=== PATIENT | male | born 1960 | race African-American/Black ===

== ENCOUNTER 2020-03-22 05:05 | Inpatient (IN) | payer OTHER, MEDICAID ==
[~2020-03-22] VITALS: Ht 172.7 cm; Wt 59.9 kg
[2020-03-22] MEDS ORDERED: MORPHINE SULFATE 4 MG/ML CPJ (NOT FOR IM USE) IV SCH (07:00)
[2020-03-22] MEDS ORDERED: NITROGLYCERIN 0.4MG TABLET SL SL PRN (08:45)
[2020-03-22] MEDS ORDERED: ONDANSETRON HCL 4MG/2ML INJ IV ONE (09:30)
[2020-03-22 10:11] LABS: MEAN CORPUSCULAR HEMOGLOBIN 28.4 pg (28.0-32.0); MEAN CORPUSCULAR VOLUME 93.9 fL (80.0-94.0); MEAN PLATELET VOLUME 8.3 fl (7.4-10.4); PLATELET 62 x1000/uL (130-400); RED BLOOD CELL COUNT 1.21 mill/uL (4.7-6.1); RED CELL DISTRIBUTION WIDTH 24.7 % (11.6-14.6)
[2020-03-22 10:32] LABS: HEMATOCRIT. 11.4 % (42.0-52.0); HEMOGLOBIN. 3.5 g/dL (14.0-18.0)
[2020-03-22 10:46] LABS: CHLORIDE 106 mEq/L (98-107)
[2020-03-22 10:50] LABS: ETHANOL BLOOD < 10 mg/dL
[2020-03-22 11:58] LABS: PLATELET ESTIMATE MARKEDLY DECREASED
[2020-03-22] MEDS ORDERED: DIATR MEGLU/DIATRIZOATE SOLN 30ML PO SCH (12:00)
[2020-03-22 12:49] LABS: HEMATOCRIT 11.9 % (42.0-52.0); HEMOGLOBIN 3.6 g/dL (14.0-18.0)
[2020-03-22] MEDS ORDERED: METOPROLOL TARTRATE 5MG/5ML VIAL IV NR (13:45)
[2020-03-22] MEDS ORDERED: DIATR MEGLU/DIATRIZOATE SOLN 30ML ONE (16:00)
[2020-03-22 16:33] LABS: HEMOGLOBIN 5.4 g/dL (14.0-18.0)
[2020-03-22 16:34] LABS: HEMATOCRIT 17.3 % (42.0-52.0)
[2020-03-22 16:37] LABS: INR 1.4; PARTIAL THROMBOPLASTIN TIME 25.6 sec (23.4-31.0); PROTHROMBIN TIME 14.6 sec (9.6-11.0)
[2020-03-22] MEDS ORDERED: NITROGLYCERIN 0.4MG TABLET SL SL ONE (16:45)
[2020-03-22] MEDS ORDERED: METOPROLOL TARTRATE 25MG TABLET PO SCH (16:45)
[2020-03-22] MEDS ORDERED: FUROSEMIDE 20MG/2ML VIAL IVP ONE (16:45)
[2020-03-22] MEDS ORDERED: VANCOMYCIN 1 G PREMIX 200 ML IV SCH (17:00)
[2020-03-22] MEDS ORDERED: CEFEPIME HCL 2000MG/VIAL INJ IV ONE (17:00)
[2020-03-22] MEDS ORDERED: CEFEPIME 2,000 MG in DEXT 5% WATER 100 ML IV NR (17:15)
[2020-03-22] MEDS ORDERED: NITROGLYCERIN OINT 1GM/INCH UDPKT TD ONE (17:15)
[2020-03-22 17:19] LABS: VITAMIN B12 SERUM >2000 pg/mL pg/mL (211-911)
[2020-03-22] MEDS ORDERED: EPINEPHRINE 0.1MG/ML (1:10,000) 10ML SYR ONE (18:47)
[2020-03-22] MEDS ORDERED: SUCCINYLCHOLINE CHLORIDE 200MG/10ML IV ONE (18:47)
[2020-03-22] MEDS ORDERED: SODIUM BICARBONATE 8.4% MEQ/ML 50ML VIAL IV ONE (18:47)
[2020-03-22] MEDS ORDERED: NOREPINEPHRINE 4MG/250ML PMX 250 ML IV ONE (19:01)
[2020-03-22] MEDS ORDERED: PROPOFOL 10MG/ML 100ML 100 ML IV ONE (19:17)
[2020-03-22] MEDS ORDERED: ACETAMINOPHEN 650MG SUPP PR PRN (19:30)
[2020-03-22 19:36] LABS: CLARITY URINE CLEAR (CLEAR); COLOR URINE YELLOW (YELLOW); KETONES URINE NEGATIVE (NEGATIVE); LEUKOCYTE ESTERASE URINE NEGATIVE (NEGATIVE); NITRITE URINE NEGATIVE (NEGATIVE); OCCULT BLOOD URINE TRACE (NEGATIVE); PROTEIN URINE 2+ (NEGATIVE); SPECIFIC GRAVITY URINE 1.016 (1.005-1.030); UROBILINOGEN URINE 0.2 E.U./dL (0.2-1.0)
[2020-03-22 20:19] LABS: *AMPHETAMINES SCREEN URINE NEGATIVE (NEGATIVE); *BARBITURATES SCREEN URINE NEGATIVE (NEGATIVE); *BENZODIAZEPINES SCREEN URINE NEGATIVE (NEGATIVE); *COCAINE SCREEN URINE NEGATIVE (NEGATIVE); METHADONE URINE SCREEN NEGATIVE (NEGATIVE)
[2020-03-22 20:20] LABS: CANNABINOID URINE SCREEN PRESUMTIVE POSITIVE (NEGATIVE); OPIATES URINE SCREEN PRESUMTIVE POSITIVE (NEGATIVE); PHENCYCLIDINE URINE SCREEN NEGATIVE (NEGATIVE)
[2020-03-22 20:58] LABS: BG BASE EXCESS -9.3 mmol/L (-2.0-2.0); BG CARBOXYHEMOGLOBIN 0.3 % (0.5-1.5); BG DEOXYHEMOGLOBIN 21.6 % (0.0-5.0); BG FRACTION INSPIRED OXYGEN 100; BG HCO3 ACT 17.9 mmol/L (22.0-26.0); BG OXYGEN SATURATION 78.3 % (92.0-98.5); BG OXYHEMOGLOBIN 78.1 % (94.0-97.0); BG PCO2 47.4 mmHg (35.0-45.0); BG PH 7.195 (7.350-7.450); BG SAMPLE SITE LEFT RADIAL; BG TIDAL VOLUME(mL) 500 mL; BG TOTAL HEMOGLOBIN 5.6 g/dL (12.0-18.0); BG VENT MODE VENT - A/C; BG VENT RATE 16 set
[2020-03-22] MEDS ORDERED: PROPOFOL 10MG/ML 100ML 100 ML IV PRN (21:45)
[2020-03-22] MEDS: SODIUM CHLORIDE 0.9% INJ 3ML FLUSH IVF SCH (22:00)
[2020-03-22 22:27] LABS: CHLORIDE 106 mEq/L (98-107)
[2020-03-22 22:34] LABS: MEAN CORPUSCULAR VOLUME 94.3 fL (80.0-94.0); RED BLOOD CELL COUNT 2.03 mill/uL (4.7-6.1); RED CELL DISTRIBUTION WIDTH 18.8 % (11.6-14.6)
[2020-03-22 22:44] LABS: HEMATOCRIT. 19.2 % (42.0-52.0); HEMOGLOBIN. 6.1 g/dL (14.0-18.0)
[2020-03-22 22:45] LABS: PLATELET 45 x1000/uL (130-400)
[2020-03-22 23:17] LABS: PLATELET ESTIMATE MARKEDLY DECREASED
[2020-03-22] MEDS ORDERED: IOHEXOL-350 100 ML BOTTLE ONE (23:17)
[2020-03-23] VITALS (69 sets, daily range): BP systolic 103–148; BP diastolic 60–91
[2020-03-23 00:59] LABS: HEMATOCRIT 19.4 % (42.0-52.0); HEMOGLOBIN 6.2 g/dL (14.0-18.0)
[2020-03-23 05:02] LABS: MEAN CORPUSCULAR HEMOGLOBIN 30.1 pg (28.0-32.0); MEAN CORPUSCULAR VOLUME 91.5 fL (80.0-94.0); MEAN PLATELET VOLUME 8.8 fl (7.4-10.4); RED BLOOD CELL COUNT 1.97 mill/uL (4.7-6.1); RED CELL DISTRIBUTION WIDTH 18.5 % (11.6-14.6)
[2020-03-23] MEDS: SODIUM CHLORIDE 0.9% INJ 3ML FLUSH IVF SCH ×3 (06:00→22:00)
[2020-03-23 07:20] LABS: HEMOGLOBIN. 5.9 g/dL (14.0-18.0)
[2020-03-23 07:21] LABS: PLATELET 43 x1000/uL (130-400)
[2020-03-23] MEDS: IPRATROPIUM/ALBUTEROL 0.5-3(2.5)MG/3ML NEB HHN SCH ×3 (08:40→20:52)
[2020-03-23] MEDS ORDERED: FUROSEMIDE 40MG/4ML VIAL IVP SCH (09:00)
[2020-03-23 09:26] LABS: BG BASE EXCESS -0.6 mmol/L (-2.0-2.0); BG CARBOXYHEMOGLOBIN 0.3 % (0.5-1.5); BG DEOXYHEMOGLOBIN 17.1 % (0.0-5.0); BG FRACTION INSPIRED OXYGEN 100; BG HCO3 ACT 25.6 mmol/L (22.0-26.0); BG METHEMOGLOBIN 0.3 % (0.0-1.5); BG OXYGEN SATURATION 82.8 % (92.0-98.5); BG OXYHEMOGLOBIN 82.3 % (94.0-97.0); BG PCO2 51.1 mmHg (35.0-45.0); BG PH 7.317 (7.350-7.450); BG PO2 55.3 mmHg (75.0-100.0); BG SAMPLE SITE RIGHT RADIAL; BG TIDAL VOLUME(mL) 500 mL; BG TOTAL HEMOGLOBIN 6.2 g/dL (12.0-18.0); BG VENT MODE VENT - A/C; BG VENT RATE 22 set
[2020-03-23 09:42] LABS: PLATELET ESTIMATE MARKEDLY DECREASED
[2020-03-23] MEDS: PANTOPRAZOLE SODIUM 40 MG/VIAL IV SCH ×2 (10:12→21:23)
[2020-03-23] MEDS ORDERED: PROPOFOL 10MG/ML 100ML 100 ML IV PRN (11:00)
[2020-03-23] MEDS: NITROGLYCERIN OINT 1GM/INCH UDPKT TD SCH ×2 (12:00→17:13)
[2020-03-23 12:45] LABS: HEMATOCRIT 18.4 % (42.0-52.0); HEMOGLOBIN 6.1 g/dL (14.0-18.0)
[2020-03-23] MEDS: CEFEPIME 2,000 MG in DEXT 5% WATER 100 ML IV SCH (12:49)
[2020-03-23] MEDS ORDERED: VANCOMYCIN 1,750 MG in DEXT 5% WATER 250 ML IV NR (13:00)
[2020-03-23] MEDS: METRONIDAZOLE 500 MG PREMIX 100 ML IV SCH ×2 (15:12→21:25)
[2020-03-23] MEDS ORDERED: FUROSEMIDE 40MG/4ML VIAL IVP NR (16:00)
[2020-03-23] MEDS: SUCRALFATE 1 G/10 ML UDC NG SCH (17:17)
[2020-03-23 18:13] LABS: HEMATOCRIT 21.7 % (42.0-52.0); HEMOGLOBIN 7.1 g/dL (14.0-18.0)
[2020-03-23] MEDS: CARVEDILOL 3.125 MG TABLET PO SCH (21:24)
[2020-03-23] MEDS: ONDANSETRON HCL 4MG/2ML INJ IV PRN (21:28)
[2020-03-24] VITALS (41 sets, daily range): BP systolic 83–136; BP diastolic 49–91
[2020-03-24] MEDS: IPRATROPIUM/ALBUTEROL 0.5-3(2.5)MG/3ML NEB HHN SCH ×4 (00:22→20:48)
[2020-03-24 01:03] LABS: HEMATOCRIT 19.8 % (42.0-52.0); HEMOGLOBIN 6.8 g/dL (14.0-18.0)
[2020-03-24] MEDS: SUCRALFATE 1 G/10 ML UDC NG SCH ×4 (06:00→18:00)
[2020-03-24] MEDS: METRONIDAZOLE 500 MG PREMIX 100 ML IV SCH ×3 (06:00→20:16)
[2020-03-24] MEDS: SODIUM CHLORIDE 0.9% INJ 3ML FLUSH IVF SCH (06:00)
[2020-03-24] MEDS: NITROGLYCERIN OINT 1GM/INCH UDPKT TD SCH ×4 (06:00→18:00)
[2020-03-24] MEDS ORDERED: VANCOMYCIN 1 G PREMIX 200 ML IV SCH (07:00)
[2020-03-24 07:08] LABS: HEMATOCRIT 19.1 % (42.0-52.0); HEMOGLOBIN 6.3 g/dL (14.0-18.0)
[2020-03-24 08:07] LABS: BG BASE EXCESS -2.5 mmol/L (-2.0-2.0); BG CARBOXYHEMOGLOBIN 0.2 % (0.5-1.5); BG DEOXYHEMOGLOBIN 0.7 % (0.0-5.0); BG HCO3 ACT 23.6 mmol/L (22.0-26.0); BG METHEMOGLOBIN 0.7 % (0.0-1.5); BG OXYGEN SATURATION 99.3 % (92.0-98.5); BG OXYHEMOGLOBIN 98.4 % (94.0-97.0); BG PCO2 48.1 mmHg (35.0-45.0); BG PH 7.308 (7.350-7.450); BG SAMPLE SITE RIGHT RADIAL; BG TIDAL VOLUME(mL) 500 mL; BG TOTAL HEMOGLOBIN 6.5 g/dL (12.0-18.0); BG VENT MODE VENT - A/C; BG VENT RATE 22 set
[2020-03-24 08:20] LABS: MEAN CORPUSCULAR HEMOGLOBIN 29.9 pg (28.0-32.0); MEAN CORPUSCULAR VOLUME 90.2 fL (80.0-94.0); MEAN PLATELET VOLUME 9.5 fl (7.4-10.4); RED BLOOD CELL COUNT 2.12 mill/uL (4.7-6.1)
[2020-03-24] MEDS: CARVEDILOL 3.125 MG TABLET PO SCH ×2 (09:00→20:15)
[2020-03-24 09:38] LABS: HEMATOCRIT. 19.1 % (42.0-52.0); HEMOGLOBIN. 6.3 g/dL (14.0-18.0); PLATELET 26 x1000/uL (130-400)
[2020-03-24] MEDS ORDERED: PROPOFOL 10MG/ML 100ML 100 ML IV PRN (10:15)
[2020-03-24 10:33] LABS: NUCLEATED RED BLOOD CELLS 2 /100 WBC
[2020-03-24 10:34] LABS: PLATELET ESTIMATE MARKEDLY DECREASED
[2020-03-24 11:06] LABS: PHOSPHORUS 8.8 mg/dL (2.5-4.9)
[2020-03-24] MEDS: PANTOPRAZOLE SODIUM 40 MG/VIAL IV SCH ×2 (13:00→20:14)
[2020-03-24] MEDS ORDERED: SODIUM POLYSTYRENE SULFONATE 15 G/60 ML BOT NG NR (13:00)
[2020-03-24] MEDS: CEFEPIME 2,000 MG in DEXT 5% WATER 100 ML IV SCH ×3 (14:00)
[2020-03-24 15:35] LABS: HEMATOCRIT 23.5 % (42.0-52.0); HEMOGLOBIN 7.8 g/dL (14.0-18.0)
[2020-03-24] MEDS ORDERED: SODIUM POLYSTYRENE SULFONATE 15 G/60 ML BOT PO NR (16:00)
[2020-03-24 20:08] LABS: HEMATOCRIT 23.6 % (42.0-52.0); HEMOGLOBIN 7.9 g/dL (14.0-18.0)
[2020-03-24] MEDS: ONDANSETRON HCL 4MG/2ML INJ IV PRN (20:17)
[2020-03-24] MEDS ORDERED: DEXTROSE 50% WATER 50ML SYRINGE IV PRN (20:45)
[2020-03-25] VITALS (21 sets, daily range): BP systolic 100–158; BP diastolic 41–84
[2020-03-25] MEDS: SUCRALFATE 1 G/10 ML UDC NG SCH ×4 (00:23→18:09)
[2020-03-25] MEDS: CEFEPIME 2,000 MG in DEXT 5% WATER 100 ML IV SCH ×2 (00:24→12:23)
[2020-03-25] MEDS: IPRATROPIUM/ALBUTEROL 0.5-3(2.5)MG/3ML NEB HHN SCH ×4 (01:25→21:23)
[2020-03-25 05:18] LABS: HEMATOCRIT. 21.3 % (42.0-52.0); HEMOGLOBIN. 7.3 g/dL (14.0-18.0); MEAN CORPUSCULAR HEMOGLOBIN 31.3 pg (28.0-32.0); MEAN PLATELET VOLUME 9.8 fl (7.4-10.4); RED BLOOD CELL COUNT 2.34 mill/uL (4.7-6.1); RED CELL DISTRIBUTION WIDTH 16.9 % (11.6-14.6)
[2020-03-25 05:23] LABS: CHLORIDE 114 mEq/L (98-107)
[2020-03-25 05:26] LABS: PLATELET 15 x1000/uL (130-400)
[2020-03-25 05:29] LABS: VANCOMYCIN TROUGH 26.1 ug/mL (5.0-10.0)
[2020-03-25 05:32] LABS: PHOSPHORUS 8.5 mg/dL (2.5-4.9)
[2020-03-25 05:33] LABS: HAPTOGLOBIN 325 mg/dL (30-200)
[2020-03-25] MEDS: METRONIDAZOLE 500 MG PREMIX 100 ML IV SCH ×3 (06:46→21:24)
[2020-03-25] MEDS: NITROGLYCERIN OINT 1GM/INCH UDPKT TD SCH ×4 (06:47→18:10)
[2020-03-25] MEDS: BLOOD SUGAR DIAGNOSTIC STRIP TEST SCH ×4 (06:48→18:47)
[2020-03-25 08:39] LABS: BG BASE EXCESS -2.6 mmol/L (-2.0-2.0); BG CARBOXYHEMOGLOBIN 0.3 % (0.5-1.5); BG DEOXYHEMOGLOBIN 0.3 % (0.0-5.0); BG FRACTION INSPIRED OXYGEN 80; BG HCO3 ACT 21.1 mmol/L (22.0-26.0); BG METHEMOGLOBIN 0.5 % (0.0-1.5); BG OXYGEN SATURATION 99.7 % (92.0-98.5); BG OXYHEMOGLOBIN 98.9 % (94.0-97.0); BG PCO2 31.4 mmHg (35.0-45.0); BG PH 7.445 (7.350-7.450); BG PO2 325.7 mmHg (75.0-100.0); BG SAMPLE SITE RIGHT RADIAL; BG TIDAL VOLUME(mL) 500 mL; BG TOTAL HEMOGLOBIN 6.9 g/dL (12.0-18.0); BG VENT MODE VENT - A/C; BG VENT RATE 24 set
[2020-03-25] MEDS: PANTOPRAZOLE SODIUM 40 MG/VIAL IV SCH ×2 (09:04→21:37)
[2020-03-25] MEDS: CARVEDILOL 3.125 MG TABLET PO SCH ×2 (09:05→21:37)
[2020-03-25] MEDS: SODIUM CHLORIDE 0.45% 1,000 ML IV SCH ×2 (09:45→23:05)
[2020-03-25] MEDS ORDERED: ALBUMIN HUMAN 25GM/100ML (25%) IV SCH (09:45)
[2020-03-25] MEDS: SODIUM CHLORIDE 0.9% INJ 3ML FLUSH IVF SCH ×2 (13:09→21:36)
[2020-03-25 13:25] LABS: NUCLEATED RED BLOOD CELLS 4 /100 WBC; PLATELET ESTIMATE MARKEDLY DECREASED
[2020-03-25] MEDS: ONDANSETRON HCL 4MG/2ML INJ IV PRN (21:37)
[2020-03-26] VITALS (21 sets, daily range): BP systolic 101–159; BP diastolic 49–76
[2020-03-26] MEDS: IPRATROPIUM/ALBUTEROL 0.5-3(2.5)MG/3ML NEB HHN SCH ×3 (02:45→13:07)
[2020-03-26 05:17] LABS: CHLORIDE 115 mEq/L (98-107)
[2020-03-26 05:18] LABS: MEAN CORPUSCULAR HEMOGLOBIN 31.4 pg (28.0-32.0); MEAN CORPUSCULAR VOLUME 90.1 fL (80.0-94.0); RED BLOOD CELL COUNT 1.83 mill/uL (4.7-6.1)
[2020-03-26 05:28] LABS: HEMATOCRIT. 16.5 % (42.0-52.0); HEMOGLOBIN. 5.8 g/dL (14.0-18.0); PLATELET 40 x1000/uL (130-400)
[2020-03-26 05:40] LABS: PHOSPHORUS 8.6 mg/dL (2.5-4.9)
[2020-03-26] MEDS: SODIUM CHLORIDE 0.9% INJ 3ML FLUSH IVF SCH ×3 (06:00→22:00)
[2020-03-26] MEDS: NITROGLYCERIN OINT 1GM/INCH UDPKT TD SCH ×4 (06:04→17:52)
[2020-03-26] MEDS: SUCRALFATE 1 G/10 ML UDC NG SCH ×4 (06:07→17:52)
[2020-03-26] MEDS: METRONIDAZOLE 500 MG PREMIX 100 ML IV SCH (06:07)
[2020-03-26] MEDS: BLOOD SUGAR DIAGNOSTIC STRIP TEST SCH ×4 (06:09→17:54)
[2020-03-26] MEDS: DEXT 5%/0.2% NACL 1,000 ML IV SCH (08:00)
[2020-03-26 08:32] LABS: NUCLEATED RED BLOOD CELLS 2 /100 WBC; PLATELET ESTIMATE MARKEDLY DECREASED
[2020-03-26 08:50] LABS: BG BASE EXCESS -3.6 mmol/L (-2.0-2.0); BG CARBOXYHEMOGLOBIN 0.8 % (0.5-1.5); BG DEOXYHEMOGLOBIN 2.8 % (0.0-5.0); BG FRACTION INSPIRED OXYGEN 50; BG HCO3 ACT 20.5 mmol/L (22.0-26.0); BG METHEMOGLOBIN 0.3 % (0.0-1.5); BG OXYGEN SATURATION 97.2 % (92.0-98.5); BG OXYHEMOGLOBIN 96.1 % (94.0-97.0); BG PCO2 31.4 mmHg (35.0-45.0); BG PH 7.432 (7.350-7.450); BG PO2 94.3 mmHg (75.0-100.0); BG SAMPLE SITE RIGHT RADIAL; BG TIDAL VOLUME(mL) 500 mL; BG TOTAL HEMOGLOBIN 5.3 g/dL (12.0-18.0); BG VENT MODE VENT - A/C; BG VENT RATE 20 set
[2020-03-26] MEDS ORDERED: CALCIUM GLUCONATE 1,000 MG in DEXT 5% WATER 90 ML IV SCH (11:00)
[2020-03-26] MEDS: CARVEDILOL 3.125 MG TABLET PO SCH ×2 (11:04→21:07)
[2020-03-26] MEDS: PANTOPRAZOLE SODIUM 40 MG/VIAL IV SCH ×2 (11:05→21:05)
[2020-03-26] MEDS: CALCIUM CARBONATE 500MG TABLET CHEW NG SCH ×3 (11:05→21:17)
[2020-03-26] MEDS ORDERED: HEPARIN 1000 UNITS/ML 10ML ONE (11:19)
[2020-03-26] MEDS ORDERED: LIDOCAINE HCL 1% 20ML VIAL (Pyxis) INJ ONE (11:19)
[2020-03-26] MEDS ORDERED: SORBITOL 70% SOLN 30ML PO NR (11:30)
[2020-03-26] MEDS: CEFEPIME 2,000 MG in DEXT 5% WATER 100 ML IV SCH ×3 (13:16)
[2020-03-26 13:20] LABS: HEMATOCRIT 16.4 % (42.0-52.0); HEMOGLOBIN 5.6 g/dL (14.0-18.0)
[2020-03-26] MEDS ORDERED: NOREPINEPHRINE 16 MG in DEXT 5% WATER 234 ML IV PRN (16:30)
[2020-03-26 17:06] LABS: A/G RATIO 0.5 (0.7-1.7); ALBUMIN 2.9 g/dL (2.9-4.4); ALPHA-1-GLOBULIN 0.4 g/dL (0.0-0.4); GAMMA GLOBULINS 3.9 g/dL (0.4-1.8); GLOBULIN TOTAL 6.4 g/dL (2.2-3.9); M-SPIKE 3.6 g/dL (Not Observed); TOTAL PROTEIN SERUM 9.3 g/dL (6.0-8.5)
[2020-03-26] MEDS ORDERED: MORPHINE SULFATE 2 MG/ML CPJ (NOT FOR IM USE) IV PRN (17:30)
[2020-03-26] MEDS ORDERED: FUROSEMIDE 100MG/10ML VIAL IVP NR (17:30)
[2020-03-26] MEDS: METRONIDAZOLE 250MG TABLET PO SCH ×2 (17:53→21:07)
[2020-03-26] MEDS: LORAZEPAM 2MG/ML CPJ IV PRN (17:53)
[2020-03-26 17:55] LABS: FERRITIN 258 ng/mL (22-322)
[2020-03-26] MEDS: ACETAMINOPHEN 650MG/20.3ML UDC PO PRN (18:11)
[2020-03-26 21:25] LABS: HEPATITIS B SURFACE ANTIGEN NEGATIVE
[2020-03-26 21:54] LABS: HEPATITIS A AB IGM NEGATIVE (NEGATIVE)
[2020-03-27] VITALS (88 sets, daily range): BP systolic 91–171; BP diastolic 48–81
[2020-03-27] MEDS: IPRATROPIUM/ALBUTEROL 0.5-3(2.5)MG/3ML NEB HHN SCH ×5 (00:30→20:31)
[2020-03-27] MEDS: BLOOD SUGAR DIAGNOSTIC STRIP TEST SCH ×5 (00:50→23:21)
[2020-03-27 04:09] LABS: KAPPA LT CHAINS FREE SERUM 34.6 mg/L (3.3-19.4); KAPPA/LAMBDA RATIO 1.6 (0.26-1.65); LAMBDA LT CHAINS FREE SERUM 21.6 mg/L (5.7-26.3)
[2020-03-27 05:47] LABS: MEAN CORPUSCULAR HEMOGLOBIN 31.2 pg (28.0-32.0); MEAN CORPUSCULAR VOLUME 90.4 fL (80.0-94.0); MEAN PLATELET VOLUME 9.5 fl (7.4-10.4); RED BLOOD CELL COUNT 2.08 mill/uL (4.7-6.1); RED CELL DISTRIBUTION WIDTH 16.2 % (11.6-14.6)
[2020-03-27] MEDS: CALCIUM CARBONATE 500MG TABLET CHEW NG SCH ×3 (06:00→22:00)
[2020-03-27] MEDS: SUCRALFATE 1 G/10 ML UDC NG SCH ×5 (06:00→23:21)
[2020-03-27] MEDS: SODIUM CHLORIDE 0.9% INJ 3ML FLUSH IVF SCH ×3 (06:00→22:00)
[2020-03-27] MEDS: NITROGLYCERIN OINT 1GM/INCH UDPKT TD SCH ×5 (06:00→23:21)
[2020-03-27] MEDS: METRONIDAZOLE 250MG TABLET PO SCH ×2 (06:00→22:00)
[2020-03-27 06:01] LABS: INR 1.6; PARTIAL THROMBOPLASTIN TIME 39.9 sec (23.4-31.0); PROTHROMBIN TIME 16.2 sec (9.6-11.0)
[2020-03-27 06:06] LABS: PHOSPHORUS 7.2 mg/dL (2.5-4.9)
[2020-03-27 06:12] LABS: HEMOGLOBIN. 6.5 g/dL (14.0-18.0)
[2020-03-27 06:13] LABS: HEMATOCRIT. 18.8 % (42.0-52.0); PLATELET 17 x1000/uL (130-400)
[2020-03-27 07:37] LABS: NUCLEATED RED BLOOD CELLS 2 /100 WBC
[2020-03-27 07:38] LABS: PLATELET ESTIMATE MARKEDLY DECREASED
[2020-03-27 08:31] LABS: BG BASE EXCESS -5.1 mmol/L (-2.0-2.0); BG CARBOXYHEMOGLOBIN 0.9 % (0.5-1.5); BG DEOXYHEMOGLOBIN 4.2 % (0.0-5.0); BG FRACTION INSPIRED OXYGEN 60; BG HCO3 ACT 19.8 mmol/L (22.0-26.0); BG METHEMOGLOBIN 0.4 % (0.0-1.5); BG OXYGEN SATURATION 95.7 % (92.0-98.5); BG OXYHEMOGLOBIN 94.5 % (94.0-97.0); BG PCO2 35.7 mmHg (35.0-45.0); BG PH 7.362 (7.350-7.450); BG PO2 88.7 mmHg (75.0-100.0); BG SAMPLE SITE RIGHT RADIAL; BG TIDAL VOLUME(mL) 500 mL; BG TOTAL HEMOGLOBIN 6.2 g/dL (12.0-18.0); BG VENT MODE VENT - A/C; BG VENT RATE 20 set
[2020-03-27] MEDS: DEXT 5%/0.2% NACL 1,000 ML IV SCH ×3 (09:45→23:05)
[2020-03-27] MEDS: PANTOPRAZOLE SODIUM 40 MG/VIAL IV SCH ×2 (09:53→21:00)
[2020-03-27] MEDS: CARVEDILOL 3.125 MG TABLET PO SCH (09:54)
[2020-03-27] MEDS ORDERED: HYDRALAZINE HCL 10MG TABLET PO NR (10:45)
[2020-03-27] MEDS ORDERED: SORBITOL 70% SOLN 30ML PO NR (11:15)
[2020-03-27] MEDS: LORAZEPAM 2MG/ML CPJ IV PRN ×2 (11:22→17:05)
[2020-03-27] MEDS ORDERED: VANCOMYCIN 1 G PREMIX 200 ML IV NR (12:00)
[2020-03-27 12:59] LABS: HEMATOCRIT 17.6 % (42.0-52.0)
[2020-03-27] MEDS ORDERED: HYDRALAZINE HCL 10MG TABLET PO SCH (14:00)
[2020-03-27] MEDS: CEFEPIME 1,000 MG in DEXTROSE 5% WATER 50 ML IV SCH (17:02)
[2020-03-27 17:54] LABS: HEMATOCRIT 23.8 % (42.0-52.0); HEMOGLOBIN 8.1 g/dL (14.0-18.0); MEAN CORPUSCULAR HEMOGLOBIN 30.7 pg (28.0-32.0); MEAN CORPUSCULAR VOLUME 89.8 fL (80.0-94.0); RED BLOOD CELL COUNT 2.65 mill/uL (4.7-6.1); RED CELL DISTRIBUTION WIDTH 16.9 % (11.6-14.6)
[2020-03-27 18:10] LABS: PLATELET 15 x1000/uL (130-400)
[2020-03-27] MEDS: CARVEDILOL 6.25 MG TABLET PO SCH (21:00)
[2020-03-27] MEDS: ONDANSETRON HCL 4MG/2ML INJ IV PRN (23:21)
[2020-03-27] MEDS: ACETAMINOPHEN 650MG/20.3ML UDC PO PRN (23:22)
[2020-03-28] VITALS (35 sets, daily range): BP systolic 110–153; BP diastolic 50–78
[2020-03-28] MEDS: IPRATROPIUM/ALBUTEROL 0.5-3(2.5)MG/3ML NEB HHN SCH ×4 (04:10→20:40)
[2020-03-28 05:54] LABS: HEMATOCRIT. 23.5 % (42.0-52.0); HEMOGLOBIN. 8.1 g/dL (14.0-18.0); MEAN CORPUSCULAR HEMOGLOBIN 31.1 pg (28.0-32.0); MEAN PLATELET VOLUME 10.2 fl (7.4-10.4); RED BLOOD CELL COUNT 2.61 mill/uL (4.7-6.1); RED CELL DISTRIBUTION WIDTH 17.2 % (11.6-14.6)
[2020-03-28] MEDS: CALCIUM CARBONATE 500MG TABLET CHEW NG SCH ×3 (06:00→22:00)
[2020-03-28] MEDS: SODIUM CHLORIDE 0.9% INJ 3ML FLUSH IVF SCH ×3 (06:00→22:00)
[2020-03-28] MEDS: BLOOD SUGAR DIAGNOSTIC STRIP TEST SCH ×3 (06:00→17:42)
[2020-03-28] MEDS: METRONIDAZOLE 250MG TABLET PO SCH ×3 (06:00→22:00)
[2020-03-28] MEDS: SUCRALFATE 1 G/10 ML UDC NG SCH ×3 (06:00→17:49)
[2020-03-28] MEDS: NITROGLYCERIN OINT 1GM/INCH UDPKT TD SCH ×3 (06:00→17:49)
[2020-03-28 06:16] LABS: PLATELET 11 x1000/uL (130-400)
[2020-03-28 06:53] LABS: PHOSPHORUS 8.6 mg/dL (2.5-4.9)
[2020-03-28] MEDS: PANTOPRAZOLE SODIUM 40 MG/VIAL IV SCH ×2 (07:59→21:00)
[2020-03-28] MEDS: ACETAMINOPHEN 650MG/20.3ML UDC PO PRN (07:59)
[2020-03-28] MEDS: CARVEDILOL 6.25 MG TABLET PO SCH ×2 (08:01→21:00)
[2020-03-28 10:35] LABS: NUCLEATED RED BLOOD CELLS 2 /100 WBC; PLATELET ESTIMATE MARKEDLY DECREASED
[2020-03-28 13:16] LABS: HEMATOCRIT 25.6 % (42.0-52.0); HEMOGLOBIN 8.7 g/dL (14.0-18.0); MEAN CORPUSCULAR HEMOGLOBIN 30.3 pg (28.0-32.0); MEAN CORPUSCULAR VOLUME 89.7 fL (80.0-94.0); RED BLOOD CELL COUNT 2.85 mill/uL (4.7-6.1); RED CELL DISTRIBUTION WIDTH 16.8 % (11.6-14.6)
[2020-03-28 13:53] LABS: PLATELET 11 x1000/uL (130-400)
[2020-03-28] MEDS: CEFEPIME 1,000 MG in DEXTROSE 5% WATER 50 ML IV SCH (15:25)
[2020-03-28] MEDS: DEXT 5%/0.2% NACL 1,000 ML IV SCH (15:29)
[2020-03-29] VITALS (39 sets, daily range): BP systolic 95–132; BP diastolic 54–79
[2020-03-29] MEDS: IPRATROPIUM/ALBUTEROL 0.5-3(2.5)MG/3ML NEB HHN SCH ×4 (01:17→21:17)
[2020-03-29] MEDS: DEXT 5%/0.2% NACL 1,000 ML IV SCH (01:45)
[2020-03-29] MEDS: BLOOD SUGAR DIAGNOSTIC STRIP TEST SCH ×4 (06:00→17:36)
[2020-03-29] MEDS: SUCRALFATE 1 G/10 ML UDC NG SCH ×4 (06:39→17:50)
[2020-03-29] MEDS: SODIUM CHLORIDE 0.9% INJ 3ML FLUSH IVF SCH ×3 (06:43→21:48)
[2020-03-29] MEDS: METRONIDAZOLE 250MG TABLET PO SCH ×3 (06:44→21:48)
[2020-03-29] MEDS: CALCIUM CARBONATE 500MG TABLET CHEW NG SCH ×3 (06:44→21:48)
[2020-03-29] MEDS: NITROGLYCERIN OINT 1GM/INCH UDPKT TD SCH ×3 (06:45→17:51)
[2020-03-29 08:24] LABS: HEMATOCRIT. 23.1 % (42.0-52.0); HEMOGLOBIN. 7.9 g/dL (14.0-18.0); MEAN CORPUSCULAR HEMOGLOBIN 30.3 pg (28.0-32.0); MEAN CORPUSCULAR VOLUME 88.4 fL (80.0-94.0); RED BLOOD CELL COUNT 2.61 mill/uL (4.7-6.1)
[2020-03-29 08:32] LABS: PHOSPHORUS 3.7 mg/dL (2.5-4.9)
[2020-03-29 09:22] LABS: PLATELET ESTIMATE MARKEDLY DECREASED
[2020-03-29 09:23] LABS: PLATELET 11 x1000/uL (130-400)
[2020-03-29] MEDS: PANTOPRAZOLE SODIUM 40 MG/VIAL IV SCH ×2 (09:53→21:48)
[2020-03-29] MEDS: CARVEDILOL 6.25 MG TABLET PO SCH ×2 (09:53→21:00)
[2020-03-29] MEDS: LORAZEPAM 2MG/ML CPJ IV PRN ×2 (10:13→20:03)
[2020-03-29 10:55] LABS: BG CARBOXYHEMOGLOBIN 0.3 % (0.5-1.5); BG DEOXYHEMOGLOBIN 0.9 % (0.0-5.0); BG FRACTION INSPIRED OXYGEN 50; BG HCO3 ACT 20.9 mmol/L (22.0-26.0); BG METHEMOGLOBIN 0.3 % (0.0-1.5); BG OXYGEN SATURATION 99.1 % (92.0-98.5); BG OXYHEMOGLOBIN 98.5 % (94.0-97.0); BG PCO2 32.3 mmHg (35.0-45.0); BG PH 7.428 (7.350-7.450); BG PO2 229.9 mmHg (75.0-100.0); BG SAMPLE SITE RIGHT RADIAL; BG TIDAL VOLUME(mL) 500 mL; BG TOTAL HEMOGLOBIN 7.9 g/dL (12.0-18.0); BG VENT MODE VENT - A/C; BG VENT RATE 16 set
[2020-03-29] MEDS: IPRATROPIUM/ALBUTEROL 0.5-3(2.5)MG/3ML NEB NEB PRN (12:40)
[2020-03-29] MEDS: CEFEPIME 1,000 MG in DEXTROSE 5% WATER 50 ML IV SCH (15:24)
[2020-03-29] MEDS: ASCORBIC ACID 500 MG TABLET NG SCH (17:50)
[2020-03-29] MEDS: ZINC SULFATE 220 MG ( 50 ) CAPSULE NG SCH (18:01)
[2020-03-30] VITALS (76 sets, daily range): BP systolic 91–147; BP diastolic 51–88
[2020-03-30] MEDS: SUCRALFATE 1 G/10 ML UDC NG SCH ×4 (00:22→18:07)
[2020-03-30] MEDS: BLOOD SUGAR DIAGNOSTIC STRIP TEST SCH ×5 (00:22→23:34)
[2020-03-30] MEDS: IPRATROPIUM/ALBUTEROL 0.5-3(2.5)MG/3ML NEB HHN SCH ×4 (00:48→21:38)
[2020-03-30] MEDS: NITROGLYCERIN OINT 1GM/INCH UDPKT TD SCH ×4 (00:49→18:00)
[2020-03-30] MEDS: CALCIUM CARBONATE 500MG TABLET CHEW NG SCH ×3 (06:04→22:26)
[2020-03-30] MEDS: METRONIDAZOLE 250MG TABLET PO SCH ×2 (06:04→14:17)
[2020-03-30] MEDS: SODIUM CHLORIDE 0.9% INJ 3ML FLUSH IVF SCH ×3 (06:05→22:26)
[2020-03-30 06:29] LABS: HEMATOCRIT. 22.1 % (42.0-52.0); HEMOGLOBIN. 7.5 g/dL (14.0-18.0); MEAN CORPUSCULAR HEMOGLOBIN 30.5 pg (28.0-32.0); MEAN PLATELET VOLUME 9.8 fl (7.4-10.4); RED BLOOD CELL COUNT 2.45 mill/uL (4.7-6.1); RED CELL DISTRIBUTION WIDTH 16.3 % (11.6-14.6)
[2020-03-30 07:18] LABS: PHOSPHORUS 5.6 mg/dL (2.5-4.9)
[2020-03-30 08:07] LABS: PLATELET 11 x1000/uL (130-400)
[2020-03-30] MEDS: ASCORBIC ACID 500 MG TABLET NG SCH (09:32)
[2020-03-30] MEDS: PANTOPRAZOLE SODIUM 40 MG/VIAL IV SCH ×2 (09:32→20:14)
[2020-03-30] MEDS: CARVEDILOL 6.25 MG TABLET PO SCH ×2 (09:32→20:14)
[2020-03-30] MEDS: ZINC SULFATE 220 MG ( 50 ) CAPSULE NG SCH (09:32)
[2020-03-30 10:29] LABS: BG BASE EXCESS -4.2 mmol/L (-2.0-2.0); BG CARBOXYHEMOGLOBIN 0.3 % (0.5-1.5); BG DEOXYHEMOGLOBIN 0.8 % (0.0-5.0); BG FRACTION INSPIRED OXYGEN 50; BG HCO3 ACT 20.3 mmol/L (22.0-26.0); BG METHEMOGLOBIN 0.5 % (0.0-1.5); BG OXYGEN SATURATION 99.2 % (92.0-98.5); BG OXYHEMOGLOBIN 98.4 % (94.0-97.0); BG PCO2 34.3 mmHg (35.0-45.0); BG PO2 225.4 mmHg (75.0-100.0); BG SAMPLE SITE RIGHT RADIAL; BG TIDAL VOLUME(mL) 500 mL; BG VENT MODE VENT - A/C; BG VENT RATE 16 set
[2020-03-30] MEDS: IPRATROPIUM/ALBUTEROL 0.5-3(2.5)MG/3ML NEB NEB PRN (13:00)
[2020-03-30] MEDS: CEFEPIME 1,000 MG in DEXTROSE 5% WATER 50 ML IV SCH (14:17)
[2020-03-30 15:44] LABS: NUCLEATED RED BLOOD CELLS 1 /100 WBC; PLATELET ESTIMATE MARKEDLY DECREASED
[2020-03-31] VITALS (50 sets, daily range): BP systolic 102–145; BP diastolic 57–77
[2020-03-31] MEDS: METRONIDAZOLE 250MG TABLET PO SCH ×4 (00:46→21:56)
[2020-03-31] MEDS: NITROGLYCERIN OINT 1GM/INCH UDPKT TD SCH ×4 (00:46→17:10)
[2020-03-31] MEDS: SUCRALFATE 1 G/10 ML UDC NG SCH ×4 (00:46→17:10)
[2020-03-31] MEDS: IPRATROPIUM/ALBUTEROL 0.5-3(2.5)MG/3ML NEB HHN SCH (01:50)
[2020-03-31] MEDS: CALCIUM CARBONATE 500MG TABLET CHEW NG SCH ×3 (05:23→21:56)
[2020-03-31] MEDS: SODIUM CHLORIDE 0.9% INJ 3ML FLUSH IVF SCH ×3 (05:23→21:51)
[2020-03-31] MEDS: BLOOD SUGAR DIAGNOSTIC STRIP TEST SCH ×3 (05:23→17:10)
[2020-03-31 08:08] LABS: HEMATOCRIT 21.1 % (42.0-52.0); HEMOGLOBIN 7.3 g/dL (14.0-18.0); MEAN CORPUSCULAR HEMOGLOBIN 30.8 pg (28.0-32.0); MEAN CORPUSCULAR VOLUME 89.6 fL (80.0-94.0); RED BLOOD CELL COUNT 2.35 mill/uL (4.7-6.1)
[2020-03-31] MEDS: ASCORBIC ACID 500 MG TABLET NG SCH (08:32)
[2020-03-31] MEDS: CARVEDILOL 6.25 MG TABLET PO SCH ×2 (08:32→21:00)
[2020-03-31] MEDS: PANTOPRAZOLE SODIUM 40 MG/VIAL IV SCH ×2 (08:32→21:56)
[2020-03-31] MEDS: ZINC SULFATE 220 MG ( 50 ) CAPSULE NG SCH (08:32)
[2020-03-31 08:45] LABS: PLATELET 19 x1000/uL (130-400)
[2020-03-31 10:03] LABS: BG BASE EXCESS -0.3 mmol/L (-2.0-2.0); BG CARBOXYHEMOGLOBIN 0.9 % (0.5-1.5); BG DEOXYHEMOGLOBIN 0.9 % (0.0-5.0); BG FRACTION INSPIRED OXYGEN 35; BG HCO3 ACT 23.1 mmol/L (22.0-26.0); BG METHEMOGLOBIN 0.5 % (0.0-1.5); BG OXYGEN SATURATION 99.1 % (92.0-98.5); BG OXYHEMOGLOBIN 97.7 % (94.0-97.0); BG PCO2 31.4 mmHg (35.0-45.0); BG PH 7.484 (7.350-7.450); BG PO2 157.2 mmHg (75.0-100.0); BG SAMPLE SITE RIGHT RADIAL; BG TIDAL VOLUME(mL) 500 mL; BG TOTAL HEMOGLOBIN 6.2 g/dL (12.0-18.0); BG VENT MODE VENT - A/C; BG VENT RATE 16 set
[2020-03-31] MEDS: CEFEPIME 1,000 MG in DEXTROSE 5% WATER 50 ML IV SCH (15:09)
[2020-04-01] VITALS (46 sets, daily range): BP systolic 97–147; BP diastolic 55–81
[2020-04-01] MEDS: SUCRALFATE 1 G/10 ML UDC NG SCH ×5 (00:39→23:40)
[2020-04-01] MEDS: NITROGLYCERIN OINT 1GM/INCH UDPKT TD SCH ×4 (00:39→17:56)
[2020-04-01] MEDS: ACETAMINOPHEN 650MG/20.3ML UDC PO PRN ×2 (02:23→22:03)
[2020-04-01 05:46] LABS: MEAN CORPUSCULAR HEMOGLOBIN 30.7 pg (28.0-32.0); MEAN PLATELET VOLUME 9.2 fl (7.4-10.4); RED BLOOD CELL COUNT 2.15 mill/uL (4.7-6.1); RED CELL DISTRIBUTION WIDTH 15.9 % (11.6-14.6)
[2020-04-01] MEDS: SODIUM CHLORIDE 0.9% INJ 3ML FLUSH IVF SCH ×3 (05:57→22:02)
[2020-04-01] MEDS: BLOOD SUGAR DIAGNOSTIC STRIP TEST SCH ×5 (05:58→23:40)
[2020-04-01] MEDS: CALCIUM CARBONATE 500MG TABLET CHEW NG SCH ×3 (06:00→22:03)
[2020-04-01 06:01] LABS: PHOSPHORUS 5.2 mg/dL (2.5-4.9)
[2020-04-01 06:13] LABS: HEMATOCRIT. 19.2 % (42.0-52.0); HEMOGLOBIN. 6.6 g/dL (14.0-18.0); PLATELET 19 x1000/uL (130-400)
[2020-04-01] MEDS: METRONIDAZOLE 250MG TABLET PO SCH ×3 (06:20→22:03)
[2020-04-01] MEDS: IPRATROPIUM/ALBUTEROL 0.5-3(2.5)MG/3ML NEB HHN SCH ×3 (08:30→20:15)
[2020-04-01] MEDS: CARVEDILOL 6.25 MG TABLET PO SCH ×2 (09:00→21:00)
[2020-04-01] MEDS: ZINC SULFATE 220 MG ( 50 ) CAPSULE NG SCH (09:03)
[2020-04-01] MEDS: PANTOPRAZOLE SODIUM 40 MG/VIAL IV SCH ×2 (09:03→21:00)
[2020-04-01] MEDS: ASCORBIC ACID 500 MG TABLET NG SCH (09:03)
[2020-04-01 11:01] LABS: BG BASE EXCESS -1.4 mmol/L (-2.0-2.0); BG CARBOXYHEMOGLOBIN 0.2 % (0.5-1.5); BG FRACTION INSPIRED OXYGEN 35; BG HCO3 ACT 22.7 mmol/L (22.0-26.0); BG METHEMOGLOBIN 0.2 % (0.0-1.5); BG OXYHEMOGLOBIN 98.6 % (94.0-97.0); BG PCO2 35.3 mmHg (35.0-45.0); BG PH 7.427 (7.350-7.450); BG PO2 166.4 mmHg (75.0-100.0); BG SAMPLE SITE RIGHT RADIAL; BG TIDAL VOLUME(mL) 500 mL; BG TOTAL HEMOGLOBIN 6.5 g/dL (12.0-18.0); BG VENT MODE VENT - A/C; BG VENT RATE 16 set
[2020-04-01 13:14] LABS: PLATELET ESTIMATE MARKEDLY DECREASED
[2020-04-01] MEDS: CEFEPIME 1,000 MG in DEXTROSE 5% WATER 50 ML IV SCH (15:31)
[2020-04-01 19:58] LABS: HEMATOCRIT 22.2 % (42.0-52.0); HEMOGLOBIN 7.7 g/dL (14.0-18.0)
[2020-04-01] MEDS: ONDANSETRON HCL 4MG/2ML INJ IV PRN (22:03)
[2020-04-02] VITALS (20 sets, daily range): BP systolic 94–134; BP diastolic 55–95
[2020-04-02] MEDS: IPRATROPIUM/ALBUTEROL 0.5-3(2.5)MG/3ML NEB HHN SCH ×4 (04:18→20:27)
[2020-04-02 05:10] LABS: HEMOGLOBIN. 7.2 g/dL (14.0-18.0); MEAN CORPUSCULAR HEMOGLOBIN 31.2 pg (28.0-32.0); MEAN CORPUSCULAR VOLUME 89.1 fL (80.0-94.0); MEAN PLATELET VOLUME 10.3 fl (7.4-10.4); RED BLOOD CELL COUNT 2.31 mill/uL (4.7-6.1); RED CELL DISTRIBUTION WIDTH 15.5 % (11.6-14.6)
[2020-04-02] MEDS: NITROGLYCERIN OINT 1GM/INCH UDPKT TD SCH ×4 (06:00→18:25)
[2020-04-02 06:17] LABS: HEMATOCRIT. 20.6 % (42.0-52.0); PLATELET 24 x1000/uL (130-400)
[2020-04-02] MEDS: SODIUM CHLORIDE 0.9% INJ 3ML FLUSH IVF SCH ×3 (06:56→22:00)
[2020-04-02] MEDS: METRONIDAZOLE 250MG TABLET PO SCH ×3 (06:56→22:10)
[2020-04-02] MEDS: SUCRALFATE 1 G/10 ML UDC NG SCH ×4 (06:56→22:00)
[2020-04-02] MEDS: CALCIUM CARBONATE 500MG TABLET CHEW NG SCH ×3 (06:56→22:10)
[2020-04-02] MEDS: BLOOD SUGAR DIAGNOSTIC STRIP TEST SCH ×3 (06:58→18:24)
[2020-04-02 08:34] LABS: BG BASE EXCESS -6.8 mmol/L (-2.0-2.0); BG CARBOXYHEMOGLOBIN 0.5 % (0.5-1.5); BG DEOXYHEMOGLOBIN 0.8 % (0.0-5.0); BG FRACTION INSPIRED OXYGEN 30; BG HCO3 ACT 16.3 mmol/L (22.0-26.0); BG METHEMOGLOBIN 0.3 % (0.0-1.5); BG OXYGEN SATURATION 99.2 % (92.0-98.5); BG OXYHEMOGLOBIN 98.4 % (94.0-97.0); BG PCO2 23.7 mmHg (35.0-45.0); BG PH 7.454 (7.350-7.450); BG PO2 166.4 mmHg (75.0-100.0); BG SAMPLE SITE RIGHT RADIAL; BG TIDAL VOLUME(mL) 500 mL; BG TOTAL HEMOGLOBIN 7.5 g/dL (12.0-18.0); BG VENT MODE VENT - A/C; BG VENT RATE 12 set
[2020-04-02] MEDS: ZINC SULFATE 220 MG ( 50 ) CAPSULE NG SCH (09:03)
[2020-04-02] MEDS: PANTOPRAZOLE SODIUM 40 MG/VIAL IV SCH ×2 (09:03→21:00)
[2020-04-02] MEDS: ASCORBIC ACID 500 MG TABLET NG SCH (09:03)
[2020-04-02] MEDS: CARVEDILOL 6.25 MG TABLET PO SCH ×2 (09:04→21:00)
[2020-04-02 14:09] LABS: PLATELET ESTIMATE MARKEDLY DECREASED
[2020-04-02] MEDS: CEFEPIME 1,000 MG in DEXTROSE 5% WATER 50 ML IV SCH (14:39)
[2020-04-02] MEDS: ACETAMINOPHEN 650MG/20.3ML UDC PO PRN (22:09)
[2020-04-02] MEDS: ONDANSETRON HCL 4MG/2ML INJ IV PRN (22:11)
[2020-04-03] VITALS (22 sets, daily range): BP systolic 77–123; BP diastolic 49–69
[2020-04-03] MEDS: IPRATROPIUM/ALBUTEROL 0.5-3(2.5)MG/3ML NEB HHN SCH ×4 (02:16→20:55)
[2020-04-03] MEDS: SUCRALFATE 1 G/10 ML UDC NG SCH ×3 (05:10→17:58)
[2020-04-03] MEDS: SODIUM CHLORIDE 0.9% INJ 3ML FLUSH IVF SCH ×3 (05:11→22:21)
[2020-04-03] MEDS: BLOOD SUGAR DIAGNOSTIC STRIP TEST SCH ×4 (05:12→18:16)
[2020-04-03] MEDS: NITROGLYCERIN OINT 1GM/INCH UDPKT TD SCH ×4 (06:00→17:58)
[2020-04-03] MEDS: CALCIUM CARBONATE 500MG TABLET CHEW NG SCH ×3 (06:52→22:21)
[2020-04-03 07:12] LABS: PHOSPHORUS 5.8 mg/dL (2.5-4.9)
[2020-04-03 08:09] LABS: MEAN CORPUSCULAR HEMOGLOBIN 31.5 pg (28.0-32.0); MEAN CORPUSCULAR VOLUME 89.4 fL (80.0-94.0); MEAN PLATELET VOLUME 10.9 fl (7.4-10.4); RED BLOOD CELL COUNT 2.21 mill/uL (4.7-6.1); RED CELL DISTRIBUTION WIDTH 15.4 % (11.6-14.6)
[2020-04-03 08:20] LABS: HEMATOCRIT. 19.7 % (42.0-52.0)
[2020-04-03] MEDS: PANTOPRAZOLE SODIUM 40 MG/VIAL IV SCH ×2 (09:24→21:00)
[2020-04-03] MEDS: ASCORBIC ACID 500 MG TABLET NG SCH (09:25)
[2020-04-03] MEDS: ZINC SULFATE 220 MG ( 50 ) CAPSULE NG SCH (09:28)
[2020-04-03] MEDS: CARVEDILOL 6.25 MG TABLET PO SCH ×2 (09:29→21:00)
[2020-04-03 15:30] LABS: PLATELET 31 x1000/uL (130-400); PLATELET ESTIMATE MARKEDLY DECREASED
[2020-04-04] VITALS (39 sets, daily range): BP systolic 104–137; BP diastolic 56–77
[2020-04-04] MEDS: IPRATROPIUM/ALBUTEROL 0.5-3(2.5)MG/3ML NEB HHN SCH ×3 (00:57→20:40)
[2020-04-04 05:48] LABS: INR 1.2; PROTHROMBIN TIME 12.8 sec (9.6-11.0)
[2020-04-04 05:58] LABS: PHOSPHORUS 5.9 mg/dL (2.5-4.9)
[2020-04-04] MEDS: SUCRALFATE 1 G/10 ML UDC NG SCH ×4 (06:00→18:35)
[2020-04-04] MEDS: CALCIUM CARBONATE 500MG TABLET CHEW NG SCH ×3 (06:00→21:02)
[2020-04-04] MEDS: SODIUM CHLORIDE 0.9% INJ 3ML FLUSH IVF SCH ×3 (06:00→21:02)
[2020-04-04] MEDS: NITROGLYCERIN OINT 1GM/INCH UDPKT TD SCH ×4 (06:00→18:49)
[2020-04-04 06:59] LABS: MEAN CORPUSCULAR VOLUME 89.8 fL (80.0-94.0); RED CELL DISTRIBUTION WIDTH 15.3 % (11.6-14.6)
[2020-04-04 08:18] LABS: HEMATOCRIT. 19.8 % (42.0-52.0); PLATELET 40 x1000/uL (130-400)
[2020-04-04] MEDS: ZINC SULFATE 220 MG ( 50 ) CAPSULE NG SCH (09:00)
[2020-04-04] MEDS: CARVEDILOL 6.25 MG TABLET PO SCH ×2 (09:00→21:01)
[2020-04-04] MEDS: ASCORBIC ACID 500 MG TABLET NG SCH (09:00)
[2020-04-04] MEDS: PANTOPRAZOLE SODIUM 40 MG/VIAL IV SCH ×2 (09:03→21:05)
[2020-04-04] MEDS ORDERED: CEFAZOLIN SODIUM 1000MG/VIAL ONE (10:35)
[2020-04-04] MEDS: BLOOD SUGAR DIAGNOSTIC STRIP TEST SCH ×3 (12:00→18:35)
[2020-04-04] MEDS: FILGRASTIM 480 MCG/0.8 ML SYRINGE SUBCUT SCH (21:03)
[2020-04-04 23:08] LABS: PLATELET ESTIMATE MARKEDLY DECREASED
[2020-04-05] VITALS (40 sets, daily range): BP systolic 94–141; BP diastolic 56–80
[2020-04-05] MEDS: IPRATROPIUM/ALBUTEROL 0.5-3(2.5)MG/3ML NEB HHN SCH ×3 (01:30→21:38)
[2020-04-05] MEDS: SUCRALFATE 1 G/10 ML UDC NG SCH ×5 (05:38→23:24)
[2020-04-05] MEDS: SODIUM CHLORIDE 0.9% INJ 3ML FLUSH IVF SCH ×3 (05:39→22:00)
[2020-04-05] MEDS: CALCIUM CARBONATE 500MG TABLET CHEW NG SCH ×3 (05:40→22:00)
[2020-04-05] MEDS: BLOOD SUGAR DIAGNOSTIC STRIP TEST SCH ×5 (05:42→23:26)
[2020-04-05] MEDS: NITROGLYCERIN OINT 1GM/INCH UDPKT TD SCH ×5 (05:42→23:26)
[2020-04-05 06:09] LABS: HEMATOCRIT. 21.6 % (42.0-52.0); HEMOGLOBIN. 7.5 g/dL (14.0-18.0); MEAN CORPUSCULAR HEMOGLOBIN 30.8 pg (28.0-32.0); MEAN CORPUSCULAR VOLUME 88.8 fL (80.0-94.0); MEAN PLATELET VOLUME 9.7 fl (7.4-10.4); RED BLOOD CELL COUNT 2.43 mill/uL (4.7-6.1); RED CELL DISTRIBUTION WIDTH 14.5 % (11.6-14.6)
[2020-04-05 06:23] LABS: PLATELET 42 x1000/uL (130-400)
[2020-04-05 06:25] LABS: PHOSPHORUS 7.8 mg/dL (2.5-4.9)
[2020-04-05] MEDS: ASCORBIC ACID 500 MG TABLET NG SCH (09:00)
[2020-04-05] MEDS: ZINC SULFATE 220 MG ( 50 ) CAPSULE NG SCH (09:00)
[2020-04-05] MEDS: CARVEDILOL 6.25 MG TABLET PO SCH ×2 (09:00→21:00)
[2020-04-05] MEDS: PANTOPRAZOLE SODIUM 40 MG/VIAL IV SCH ×2 (09:17→21:00)
[2020-04-05 10:31] LABS: PLATELET ESTIMATE MARKEDLY DECREASED
[2020-04-05] MEDS ORDERED: CEFAZOLIN 1000MG PREMIX 50 ML IV SCH (13:00)
[2020-04-05] MEDS ORDERED: MIDAZOLAM HCL 5 MG/5 ML VIAL ONE (14:50)
[2020-04-05] MEDS ORDERED: FENTANYL CITRATE/PF 50MCG/ML 2ML VIAL ONE (14:51)
[2020-04-05] MEDS ORDERED: MIDAZOLAM HCL 5 MG/5 ML VIAL IV PRN (14:52)
[2020-04-05] MEDS: FILGRASTIM 480 MCG/0.8 ML SYRINGE SUBCUT SCH (21:00)
[2020-04-05] MEDS: ONDANSETRON HCL 4MG/2ML INJ IV PRN (23:27)
[2020-04-05] MEDS: ACETAMINOPHEN 650MG/20.3ML UDC PO PRN (23:27)
[2020-04-06] VITALS (28 sets, daily range): BP systolic 106–140; BP diastolic 53–120
[2020-04-06] MEDS: IPRATROPIUM/ALBUTEROL 0.5-3(2.5)MG/3ML NEB HHN SCH ×4 (01:20→20:00)
[2020-04-06] MEDS: BLOOD SUGAR DIAGNOSTIC STRIP TEST SCH ×3 (06:00→17:33)
[2020-04-06 06:38] LABS: MEAN CORPUSCULAR HEMOGLOBIN 31.7 pg (28.0-32.0); MEAN CORPUSCULAR VOLUME 90.2 fL (80.0-94.0); MEAN PLATELET VOLUME 8.7 fl (7.4-10.4); PLATELET 72 x1000/uL (130-400); RED BLOOD CELL COUNT 2.22 mill/uL (4.7-6.1); RED CELL DISTRIBUTION WIDTH 14.5 % (11.6-14.6)
[2020-04-06] MEDS: SODIUM CHLORIDE 0.9% INJ 3ML FLUSH IVF SCH ×3 (06:50→22:48)
[2020-04-06] MEDS: SUCRALFATE 1 G/10 ML UDC NG SCH ×3 (06:53→17:32)
[2020-04-06] MEDS: NITROGLYCERIN OINT 1GM/INCH UDPKT TD SCH ×3 (06:53→17:32)
[2020-04-06] MEDS: CALCIUM CARBONATE 500MG TABLET CHEW NG SCH ×3 (06:53→22:47)
[2020-04-06 07:42] LABS: PHOSPHORUS 8.1 mg/dL (2.5-4.9)
[2020-04-06 09:57] LABS: PLATELET ESTIMATE DECREASED
[2020-04-06] MEDS: ASCORBIC ACID 500 MG TABLET NG SCH (09:57)
[2020-04-06] MEDS: PANTOPRAZOLE SODIUM 40 MG/VIAL IV SCH ×2 (09:57→21:10)
[2020-04-06] MEDS: ZINC SULFATE 220 MG ( 50 ) CAPSULE NG SCH (09:57)
[2020-04-06] MEDS: CARVEDILOL 6.25 MG TABLET PO SCH ×2 (09:58→22:35)
[2020-04-06] MEDS: ACETAMINOPHEN 650MG/20.3ML UDC PO PRN (14:17)
[2020-04-06] MEDS: FILGRASTIM 480 MCG/0.8 ML SYRINGE SUBCUT SCH (21:10)
[2020-04-07] VITALS (52 sets, daily range): BP systolic 74–139; BP diastolic 39–80
[2020-04-07] MEDS: SUCRALFATE 1 G/10 ML UDC NG SCH ×4 (01:18→17:24)
[2020-04-07] MEDS: NITROGLYCERIN OINT 1GM/INCH UDPKT TD SCH ×4 (01:19→17:24)
[2020-04-07] MEDS: IPRATROPIUM/ALBUTEROL 0.5-3(2.5)MG/3ML NEB HHN SCH ×4 (02:41→20:28)
[2020-04-07 05:44] LABS: MEAN CORPUSCULAR HEMOGLOBIN 32.1 pg (28.0-32.0); RED CELL DISTRIBUTION WIDTH 14.5 % (11.6-14.6)
[2020-04-07] MEDS: SODIUM CHLORIDE 0.9% INJ 3ML FLUSH IVF SCH ×3 (06:00→21:50)
[2020-04-07 06:16] LABS: PHOSPHORUS 8.1 mg/dL (2.5-4.9)
[2020-04-07] MEDS: CALCIUM CARBONATE 500MG TABLET CHEW NG SCH ×3 (07:10→21:48)
[2020-04-07] MEDS: CARVEDILOL 6.25 MG TABLET PO SCH ×2 (09:55→21:48)
[2020-04-07] MEDS: PANTOPRAZOLE SODIUM 40 MG/VIAL IV SCH ×2 (09:55→21:00)
[2020-04-07] MEDS: ZINC SULFATE 220 MG ( 50 ) CAPSULE NG SCH (09:56)
[2020-04-07] MEDS: ASCORBIC ACID 500 MG TABLET NG SCH (09:56)
[2020-04-07 10:16] LABS: PLATELET 92 x1000/uL (130-400)
[2020-04-07 10:28] LABS: ATYPICAL LYMPHOCYTES 1; PLATELET ESTIMATE SLIGHTLY DECREASED
[2020-04-07] MEDS: BLOOD SUGAR DIAGNOSTIC STRIP TEST SCH ×3 (11:51→17:25)
[2020-04-07] MEDS: ACETAMINOPHEN 650MG/20.3ML UDC PO PRN (21:49)
[2020-04-07] MEDS: ONDANSETRON HCL 4MG/2ML INJ IV PRN (21:49)
[2020-04-08] VITALS (28 sets, daily range): BP systolic 94–129; BP diastolic 48–79
[2020-04-08] MEDS: IPRATROPIUM/ALBUTEROL 0.5-3(2.5)MG/3ML NEB HHN SCH ×4 (03:13→20:54)
[2020-04-08 05:31] LABS: HEMOGLOBIN. 7.2 g/dL (14.0-18.0); MEAN CORPUSCULAR HEMOGLOBIN 32.1 pg (28.0-32.0); MEAN CORPUSCULAR VOLUME 91.3 fL (80.0-94.0); PLATELET 52 x1000/uL (130-400); RED BLOOD CELL COUNT 2.23 mill/uL (4.7-6.1); RED CELL DISTRIBUTION WIDTH 14.2 % (11.6-14.6)
[2020-04-08 05:35] LABS: CHLORIDE 100 mEq/L (98-107)
[2020-04-08 05:47] LABS: PHOSPHORUS 6.9 mg/dL (2.5-4.9)
[2020-04-08 06:29] LABS: HEMATOCRIT. 20.4 % (42.0-52.0)
[2020-04-08] MEDS: SODIUM CHLORIDE 0.9% INJ 3ML FLUSH IVF SCH ×3 (06:32→21:08)
[2020-04-08] MEDS: SUCRALFATE 1 G/10 ML UDC NG SCH ×5 (06:32→23:06)
[2020-04-08] MEDS: CALCIUM CARBONATE 500MG TABLET CHEW NG SCH ×3 (06:33→21:08)
[2020-04-08] MEDS: BLOOD SUGAR DIAGNOSTIC STRIP TEST SCH ×3 (06:33→11:52)
[2020-04-08] MEDS: NITROGLYCERIN OINT 1GM/INCH UDPKT TD SCH ×3 (06:34→12:00)
[2020-04-08] MEDS: ACETAMINOPHEN 650MG/20.3ML UDC PO PRN (06:35)
[2020-04-08] MEDS: ASCORBIC ACID 500 MG TABLET NG SCH (08:01)
[2020-04-08] MEDS: ZINC SULFATE 220 MG ( 50 ) CAPSULE NG SCH (08:01)
[2020-04-08] MEDS: PANTOPRAZOLE SODIUM 40 MG/VIAL IV SCH ×2 (08:02→21:08)
[2020-04-08] MEDS: CARVEDILOL 6.25 MG TABLET PO SCH (08:02)
[2020-04-08 10:25] LABS: NUCLEATED RED BLOOD CELLS 1 /100 WBC; PLATELET ESTIMATE DECREASED
[2020-04-08] MEDS: CARVEDILOL 3.125 MG TABLET PO SCH (20:24)
[2020-04-09] VITALS (12 sets, daily range): BP systolic 95–114; BP diastolic 49–64
[2020-04-09] MEDS: IPRATROPIUM/ALBUTEROL 0.5-3(2.5)MG/3ML NEB HHN SCH ×4 (01:21→20:16)
[2020-04-09] MEDS: SODIUM CHLORIDE 0.9% INJ 3ML FLUSH IVF SCH ×3 (05:12→21:02)
[2020-04-09] MEDS: CALCIUM CARBONATE 500MG TABLET CHEW NG SCH ×3 (05:12→21:00)
[2020-04-09] MEDS: SUCRALFATE 1 G/10 ML UDC NG SCH ×4 (05:12→23:24)
[2020-04-09] MEDS: BLOOD SUGAR DIAGNOSTIC STRIP TEST SCH (06:00)
[2020-04-09 07:08] LABS: HEMATOCRIT. 22.2 % (42.0-52.0); HEMOGLOBIN. 7.7 g/dL (14.0-18.0); MEAN CORPUSCULAR HEMOGLOBIN 31.9 pg (28.0-32.0); MEAN CORPUSCULAR VOLUME 91.8 fL (80.0-94.0); MEAN PLATELET VOLUME 9.8 fl (7.4-10.4); PLATELET 54 x1000/uL (130-400); RED BLOOD CELL COUNT 2.41 mill/uL (4.7-6.1); RED CELL DISTRIBUTION WIDTH 14.5 % (11.6-14.6)
[2020-04-09] MEDS: CARVEDILOL 3.125 MG TABLET PO SCH ×2 (08:17→21:00)
[2020-04-09] MEDS: ZINC SULFATE 220 MG ( 50 ) CAPSULE NG SCH (08:18)
[2020-04-09] MEDS: PANTOPRAZOLE SODIUM 40 MG/VIAL IV SCH ×2 (08:19→20:54)
[2020-04-09] MEDS: ASCORBIC ACID 500 MG TABLET NG SCH (08:19)
[2020-04-09 09:47] LABS: PHOSPHORUS 8.4 mg/dL (2.5-4.9)
[2020-04-09 13:36] LABS: PLATELET ESTIMATE MARKEDLY DECREASED
[2020-04-10] VITALS (12 sets, daily range): BP systolic 86–130; BP diastolic 50–79
[2020-04-10] MEDS: IPRATROPIUM/ALBUTEROL 0.5-3(2.5)MG/3ML NEB HHN SCH ×4 (04:28→20:27)
[2020-04-10] MEDS: SODIUM CHLORIDE 0.9% INJ 3ML FLUSH IVF SCH ×3 (05:00→21:22)
[2020-04-10] MEDS: SUCRALFATE 1 G/10 ML UDC NG SCH ×4 (05:00→23:00)
[2020-04-10] MEDS: CALCIUM CARBONATE 500MG TABLET CHEW NG SCH ×3 (05:00→21:23)
[2020-04-10] MEDS: BLOOD SUGAR DIAGNOSTIC STRIP TEST SCH (05:01)
[2020-04-10 06:15] LABS: HEMATOCRIT. 21.7 % (42.0-52.0); HEMOGLOBIN. 7.4 g/dL (14.0-18.0); MEAN CORPUSCULAR HEMOGLOBIN 31.5 pg (28.0-32.0); MEAN CORPUSCULAR VOLUME 91.6 fL (80.0-94.0); MEAN PLATELET VOLUME 9.5 fl (7.4-10.4); PLATELET 52 x1000/uL (130-400); RED BLOOD CELL COUNT 2.37 mill/uL (4.7-6.1); RED CELL DISTRIBUTION WIDTH 14.5 % (11.6-14.6)
[2020-04-10 06:31] LABS: PHOSPHORUS 6.9 mg/dL (2.5-4.9)
[2020-04-10] MEDS: ASCORBIC ACID 500 MG TABLET NG SCH (08:16)
[2020-04-10] MEDS: ZINC SULFATE 220 MG ( 50 ) CAPSULE NG SCH (08:16)
[2020-04-10] MEDS: PANTOPRAZOLE SODIUM 40 MG/VIAL IV SCH ×2 (08:16→20:28)
[2020-04-10] MEDS: CARVEDILOL 3.125 MG TABLET PO SCH ×2 (08:17→20:31)
[2020-04-10 11:33] LABS: PLATELET ESTIMATE DECREASED
[2020-04-10] MEDS: ACETAMINOPHEN 650MG/20.3ML UDC PO PRN (21:22)
[2020-04-11] VITALS (32 sets, daily range): BP systolic 102–140; BP diastolic 52–101
[2020-04-11] MEDS: IPRATROPIUM/ALBUTEROL 0.5-3(2.5)MG/3ML NEB HHN SCH ×4 (01:18→20:26)
[2020-04-11] MEDS: DIPHENHYDRAMINE 50MG/ML VIAL IV PRN (01:28)
[2020-04-11] MEDS: CALCIUM CARBONATE 500MG TABLET CHEW NG SCH ×3 (05:11→21:05)
[2020-04-11] MEDS: SUCRALFATE 1 G/10 ML UDC NG SCH ×4 (05:11→23:22)
[2020-04-11] MEDS: SODIUM CHLORIDE 0.9% INJ 3ML FLUSH IVF SCH ×3 (05:12→21:07)
[2020-04-11] MEDS: BLOOD SUGAR DIAGNOSTIC STRIP TEST SCH (06:00)
[2020-04-11 07:45] LABS: MEAN CORPUSCULAR HEMOGLOBIN 32.2 pg (28.0-32.0); MEAN PLATELET VOLUME 9.4 fl (7.4-10.4); PLATELET 52 x1000/uL (130-400); RED BLOOD CELL COUNT 2.12 mill/uL (4.7-6.1); RED CELL DISTRIBUTION WIDTH 14.2 % (11.6-14.6)
[2020-04-11 08:01] LABS: PHOSPHORUS 7.8 mg/dL (2.5-4.9)
[2020-04-11 08:06] LABS: HEMATOCRIT. 19.5 % (42.0-52.0); HEMOGLOBIN. 6.8 g/dL (14.0-18.0)
[2020-04-11] MEDS: ASCORBIC ACID 500 MG TABLET NG SCH (08:45)
[2020-04-11] MEDS: ZINC SULFATE 220 MG ( 50 ) CAPSULE NG SCH (08:45)
[2020-04-11] MEDS: CARVEDILOL 3.125 MG TABLET PO SCH ×2 (08:45→21:00)
[2020-04-11] MEDS: PANTOPRAZOLE SODIUM 40 MG/VIAL IV SCH ×2 (08:45→21:04)
[2020-04-11 13:29] LABS: PLATELET ESTIMATE MARKEDLY DECREASED
[2020-04-11] MEDS: ACETAMINOPHEN 650MG/20.3ML UDC PO PRN (21:05)
[2020-04-12] VITALS (16 sets, daily range): BP systolic 100–139; BP diastolic 54–75
[2020-04-12] MEDS: IPRATROPIUM/ALBUTEROL 0.5-3(2.5)MG/3ML NEB HHN SCH ×4 (02:25→21:24)
[2020-04-12 05:18] LABS: PHOSPHORUS 5.9 mg/dL (2.5-4.9)
[2020-04-12] MEDS: CALCIUM CARBONATE 500MG TABLET CHEW NG SCH ×3 (05:30→21:37)
[2020-04-12] MEDS: SUCRALFATE 1 G/10 ML UDC NG SCH ×2 (05:30→11:59)
[2020-04-12] MEDS: BLOOD SUGAR DIAGNOSTIC STRIP TEST SCH (05:31)
[2020-04-12] MEDS: SODIUM CHLORIDE 0.9% INJ 3ML FLUSH IVF SCH ×3 (05:31→21:37)
[2020-04-12 06:37] LABS: MEAN CORPUSCULAR HEMOGLOBIN 32.2 pg (28.0-32.0); MEAN PLATELET VOLUME 9.5 fl (7.4-10.4); PLATELET 58 x1000/uL (130-400); RED CELL DISTRIBUTION WIDTH 14.5 % (11.6-14.6)
[2020-04-12 08:38] LABS: HEMATOCRIT. 19.3 % (42.0-52.0); HEMOGLOBIN. 6.8 g/dL (14.0-18.0)
[2020-04-12] MEDS: ZINC SULFATE 220 MG ( 50 ) CAPSULE NG SCH (08:41)
[2020-04-12] MEDS: ASCORBIC ACID 500 MG TABLET NG SCH (08:41)
[2020-04-12] MEDS: PANTOPRAZOLE SODIUM 40 MG/VIAL IV SCH ×2 (08:41→21:37)
[2020-04-12] MEDS: CARVEDILOL 3.125 MG TABLET PO SCH ×2 (08:42→21:00)
[2020-04-12 11:25] LABS: PLATELET ESTIMATE DECREASED
[2020-04-12] MEDS: ACETYLCYSTEINE 100MG/ML 10% VIAL 4ML INH SCH (21:24)
[2020-04-13] VITALS (12 sets, daily range): BP systolic 106–140; BP diastolic 57–73
[2020-04-13] MEDS: IPRATROPIUM/ALBUTEROL 0.5-3(2.5)MG/3ML NEB HHN SCH ×4 (02:46→20:39)
[2020-04-13] MEDS: CALCIUM CARBONATE 500MG TABLET CHEW NG SCH ×2 (05:41→14:58)
[2020-04-13] MEDS: SODIUM CHLORIDE 0.9% INJ 3ML FLUSH IVF SCH ×2 (05:42→14:50)
[2020-04-13] MEDS: BLOOD SUGAR DIAGNOSTIC STRIP TEST SCH (05:42)
[2020-04-13 06:02] LABS: HEMATOCRIT. 23.1 % (42.0-52.0); HEMOGLOBIN. 7.8 g/dL (14.0-18.0); MEAN CORPUSCULAR HEMOGLOBIN 31.3 pg (28.0-32.0); MEAN CORPUSCULAR VOLUME 92.1 fL (80.0-94.0); MEAN PLATELET VOLUME 9.4 fl (7.4-10.4); RED BLOOD CELL COUNT 2.51 mill/uL (4.7-6.1)
[2020-04-13 06:13] LABS: PHOSPHORUS 7.1 mg/dL (2.5-4.9)
[2020-04-13 06:30] LABS: PLATELET 50 x1000/uL (130-400)
[2020-04-13] MEDS: CARVEDILOL 3.125 MG TABLET PO SCH ×2 (08:14→21:11)
[2020-04-13] MEDS: ACETYLCYSTEINE 100MG/ML 10% VIAL 4ML INH SCH (08:49)
[2020-04-13] MEDS: ZINC SULFATE 220 MG ( 50 ) CAPSULE NG SCH (10:30)
[2020-04-13] MEDS: ASCORBIC ACID 500 MG TABLET NG SCH (10:30)
[2020-04-13] MEDS: PANTOPRAZOLE SODIUM 40 MG/VIAL IV SCH ×2 (10:30→21:11)
[2020-04-13 10:32] LABS: PLATELET ESTIMATE DECREASED
[2020-04-14] VITALS (12 sets, daily range): BP systolic 107–130; BP diastolic 60–74
[2020-04-14] MEDS: CALCIUM CARBONATE 500MG TABLET CHEW NG SCH ×3 (00:01→22:07)
[2020-04-14] MEDS: SODIUM CHLORIDE 0.9% INJ 3ML FLUSH IVF SCH ×4 (00:02→22:07)
[2020-04-14] MEDS: IPRATROPIUM/ALBUTEROL 0.5-3(2.5)MG/3ML NEB HHN SCH ×4 (02:16→20:50)
[2020-04-14] MEDS: BLOOD SUGAR DIAGNOSTIC STRIP TEST SCH (06:15)
[2020-04-14] MEDS: PANTOPRAZOLE SODIUM 40 MG/VIAL IV SCH ×2 (08:13→22:03)
[2020-04-14] MEDS: CARVEDILOL 3.125 MG TABLET PO SCH ×2 (08:14→21:00)
[2020-04-14] MEDS: ASCORBIC ACID 500 MG TABLET NG SCH (08:16)
[2020-04-14] MEDS: ZINC SULFATE 220 MG ( 50 ) CAPSULE NG SCH (08:16)
[2020-04-14] MEDS: ACETYLCYSTEINE 100MG/ML 10% VIAL 4ML INH SCH ×2 (08:34→14:00)
[2020-04-14] MEDS: LACTULOSE 20G/30ML UDC GT PRN (22:03)
[2020-04-15] VITALS (12 sets, daily range): BP systolic 94–127; BP diastolic 50–74
[2020-04-15] MEDS: IPRATROPIUM/ALBUTEROL 0.5-3(2.5)MG/3ML NEB HHN SCH ×4 (02:07→20:49)
[2020-04-15] MEDS: CALCIUM CARBONATE 500MG TABLET CHEW NG SCH ×3 (05:37→21:13)
[2020-04-15] MEDS: SODIUM CHLORIDE 0.9% INJ 3ML FLUSH IVF SCH ×3 (05:37→21:14)
[2020-04-15] MEDS: BLOOD SUGAR DIAGNOSTIC STRIP TEST SCH (05:37)
[2020-04-15 06:25] LABS: MEAN CORPUSCULAR HEMOGLOBIN 31.3 pg (28.0-32.0); MEAN CORPUSCULAR VOLUME 91.8 fL (80.0-94.0); MEAN PLATELET VOLUME 8.5 fl (7.4-10.4); PLATELET 56 x1000/uL (130-400); RED BLOOD CELL COUNT 2.23 mill/uL (4.7-6.1); RED CELL DISTRIBUTION WIDTH 14.1 % (11.6-14.6)
[2020-04-15 06:33] LABS: PHOSPHORUS 6.8 mg/dL (2.5-4.9)
[2020-04-15] MEDS: ACETYLCYSTEINE 100MG/ML 10% VIAL 4ML INH SCH ×2 (07:58→20:49)
[2020-04-15 08:33] LABS: HEMATOCRIT. 20.4 % (42.0-52.0)
[2020-04-15] MEDS: DOCUSATE SODIUM SUGAR FREE 100MG/10ML UDC GT SCH (09:05)
[2020-04-15] MEDS: PANTOPRAZOLE SODIUM 40 MG/VIAL IV SCH ×2 (09:05→21:13)
[2020-04-15] MEDS: ZINC SULFATE 220 MG ( 50 ) CAPSULE NG SCH (09:05)
[2020-04-15] MEDS: CARVEDILOL 3.125 MG TABLET PO SCH ×2 (09:05→21:13)
[2020-04-15] MEDS: ASCORBIC ACID 500 MG TABLET NG SCH (09:06)
[2020-04-15 09:21] LABS: PLATELET ESTIMATE DECREASED
[2020-04-15] MEDS: ACETAMINOPHEN 650MG/20.3ML UDC PO PRN (09:24)
[2020-04-15] MEDS: LACTULOSE 20G/30ML UDC GT PRN (23:53)
[2020-04-16] VITALS (15 sets, daily range): BP systolic 93–130; BP diastolic 54–70
[2020-04-16] MEDS: IPRATROPIUM/ALBUTEROL 0.5-3(2.5)MG/3ML NEB HHN SCH ×4 (01:59→22:41)
[2020-04-16] MEDS: CALCIUM CARBONATE 500MG TABLET CHEW NG SCH ×3 (05:17→21:46)
[2020-04-16] MEDS: SODIUM CHLORIDE 0.9% INJ 3ML FLUSH IVF SCH ×3 (05:17→21:56)
[2020-04-16] MEDS: BLOOD SUGAR DIAGNOSTIC STRIP TEST SCH (05:17)
[2020-04-16 06:14] LABS: MEAN CORPUSCULAR HEMOGLOBIN 31.7 pg (28.0-32.0); MEAN CORPUSCULAR VOLUME 91.8 fL (80.0-94.0); MEAN PLATELET VOLUME 8.9 fl (7.4-10.4); PLATELET 60 x1000/uL (130-400); RED BLOOD CELL COUNT 2.16 mill/uL (4.7-6.1); RED CELL DISTRIBUTION WIDTH 13.9 % (11.6-14.6)
[2020-04-16 06:34] LABS: HEMATOCRIT. 19.8 % (42.0-52.0); HEMOGLOBIN. 6.9 g/dL (14.0-18.0)
[2020-04-16 06:51] LABS: PHOSPHORUS 6.4 mg/dL (2.5-4.9)
[2020-04-16] MEDS: ACETYLCYSTEINE 100MG/ML 10% VIAL 4ML INH SCH ×3 (08:44→22:40)
[2020-04-16] MEDS: SULFAMETHOXAZOLE/TRIMETHOPRIM 800/160MG TABLET PO SCH (09:49)
[2020-04-16] MEDS: ASCORBIC ACID 500 MG TABLET NG SCH (09:49)
[2020-04-16] MEDS: CARVEDILOL 3.125 MG TABLET PO SCH ×2 (09:49→20:15)
[2020-04-16] MEDS: ZINC SULFATE 220 MG ( 50 ) CAPSULE NG SCH (09:49)
[2020-04-16] MEDS: PANTOPRAZOLE SODIUM 40 MG/VIAL IV SCH ×2 (09:49→20:16)
[2020-04-16] MEDS: DOCUSATE SODIUM SUGAR FREE 100MG/10ML UDC GT SCH (09:50)
[2020-04-16 13:18] LABS: PLATELET ESTIMATE DECREASED
[2020-04-16] MEDS: PAROXETINE HCL 10MG TABLET GT SCH (15:21)
[2020-04-16] MEDS: DIPHENHYDRAMINE 50MG/ML VIAL IV PRN (21:47)
[2020-04-16] MEDS: ACETAMINOPHEN 650MG/20.3ML UDC PO PRN (21:47)
[2020-04-16] MEDS: FILGRASTIM-TBO 300 MCG/0.5 ML SYRINGE SQ SCH (22:22)
[2020-04-16 23:39] LABS: HEMATOCRIT 22.7 % (42.0-52.0)
[2020-04-17] VITALS (12 sets, daily range): BP systolic 100–125; BP diastolic 58–79
[2020-04-17] MEDS: CALCIUM CARBONATE 500MG TABLET CHEW NG SCH ×3 (06:24→21:47)
[2020-04-17] MEDS: SODIUM CHLORIDE 0.9% INJ 3ML FLUSH IVF SCH ×3 (06:25→21:47)
[2020-04-17] MEDS: BLOOD SUGAR DIAGNOSTIC STRIP TEST SCH (06:25)
[2020-04-17 06:31] LABS: HEMATOCRIT. 21.3 % (42.0-52.0); HEMOGLOBIN. 7.3 g/dL (14.0-18.0); MEAN CORPUSCULAR VOLUME 90.1 fL (80.0-94.0); MEAN PLATELET VOLUME 8.6 fl (7.4-10.4); PLATELET 61 x1000/uL (130-400); RED BLOOD CELL COUNT 2.37 mill/uL (4.7-6.1); RED CELL DISTRIBUTION WIDTH 14.9 % (11.6-14.6)
[2020-04-17 07:02] LABS: PHOSPHORUS 4.3 mg/dL (2.5-4.9)
[2020-04-17] MEDS: IPRATROPIUM/ALBUTEROL 0.5-3(2.5)MG/3ML NEB HHN SCH ×3 (08:00→21:11)
[2020-04-17] MEDS: DOCUSATE SODIUM SUGAR FREE 100MG/10ML UDC GT SCH (09:42)
[2020-04-17] MEDS: ZINC SULFATE 220 MG ( 50 ) CAPSULE NG SCH (09:42)
[2020-04-17] MEDS: PAROXETINE HCL 10MG TABLET GT SCH (09:42)
[2020-04-17] MEDS: PANTOPRAZOLE SODIUM 40 MG/VIAL IV SCH ×2 (09:42→21:47)
[2020-04-17] MEDS: ASCORBIC ACID 500 MG TABLET NG SCH (09:42)
[2020-04-17] MEDS: CARVEDILOL 3.125 MG TABLET PO SCH ×2 (09:43→21:00)
[2020-04-17 12:31] LABS: PLATELET ESTIMATE DECREASED
[2020-04-17] MEDS: ACETYLCYSTEINE 100MG/ML 10% VIAL 4ML INH SCH (14:00)
[2020-04-17] MEDS: FILGRASTIM-TBO 300 MCG/0.5 ML SYRINGE SQ SCH (21:47)
[2020-04-18] VITALS (13 sets, daily range): BP systolic 100–120; BP diastolic 55–76
[2020-04-18] MEDS: IPRATROPIUM/ALBUTEROL 0.5-3(2.5)MG/3ML NEB HHN SCH ×4 (02:03→20:38)
[2020-04-18] MEDS: SODIUM CHLORIDE 0.9% INJ 3ML FLUSH IVF SCH ×3 (06:39→22:20)
[2020-04-18] MEDS: BLOOD SUGAR DIAGNOSTIC STRIP TEST SCH (06:39)
[2020-04-18] MEDS: CALCIUM CARBONATE 500MG TABLET CHEW NG SCH ×3 (06:39→21:06)
[2020-04-18 07:26] LABS: PHOSPHORUS 5.2 mg/dL (2.5-4.9)
[2020-04-18 07:47] LABS: HEMATOCRIT. 21.1 % (42.0-52.0); HEMOGLOBIN. 7.2 g/dL (14.0-18.0); MEAN CORPUSCULAR HEMOGLOBIN 30.8 pg (28.0-32.0); MEAN CORPUSCULAR VOLUME 90.4 fL (80.0-94.0); MEAN PLATELET VOLUME 8.8 fl (7.4-10.4); PLATELET 62 x1000/uL (130-400); RED BLOOD CELL COUNT 2.34 mill/uL (4.7-6.1); RED CELL DISTRIBUTION WIDTH 15.2 % (11.6-14.6)
[2020-04-18] MEDS: CARVEDILOL 3.125 MG TABLET PO SCH ×2 (08:50→21:00)
[2020-04-18 14:09] LABS: PLATELET ESTIMATE DECREASED
[2020-04-18] MEDS: PANTOPRAZOLE SODIUM 40 MG/VIAL IV SCH ×2 (14:24→21:05)
[2020-04-18] MEDS: ZINC SULFATE 220 MG ( 50 ) CAPSULE NG SCH (14:24)
[2020-04-18] MEDS: PAROXETINE HCL 10MG TABLET GT SCH (14:24)
[2020-04-18] MEDS: ASCORBIC ACID 500 MG TABLET NG SCH (14:25)
[2020-04-18] MEDS: DOCUSATE SODIUM SUGAR FREE 100MG/10ML UDC GT SCH (14:25)
[2020-04-18] MEDS: SULFAMETHOXAZOLE/TRIMETHOPRIM 800/160MG TABLET PO SCH (14:25)
[2020-04-18] MEDS: ACETAMINOPHEN 650MG/20.3ML UDC PO PRN (14:41)
[2020-04-18] MEDS: FILGRASTIM-TBO 300 MCG/0.5 ML SYRINGE SQ SCH (21:07)
[2020-04-19] VITALS (11 sets, daily range): BP systolic 96–138; BP diastolic 51–78
[2020-04-19] MEDS ORDERED: DEXT 5%/0.45% NACL 1000ML 1,000 ML IV SCH
[2020-04-19] MEDS: CALCIUM CARBONATE 500MG TABLET CHEW NG SCH ×4 (06:00→20:58)
[2020-04-19] MEDS: SODIUM CHLORIDE 0.9% INJ 3ML FLUSH IVF SCH ×3 (06:01→20:58)
[2020-04-19] MEDS: BLOOD SUGAR DIAGNOSTIC STRIP TEST SCH (06:01)
[2020-04-19 06:26] LABS: HEMATOCRIT. 21.3 % (42.0-52.0); HEMOGLOBIN. 7.2 g/dL (14.0-18.0); MEAN CORPUSCULAR HEMOGLOBIN 31.1 pg (28.0-32.0); MEAN CORPUSCULAR VOLUME 91.5 fL (80.0-94.0); MEAN PLATELET VOLUME 8.9 fl (7.4-10.4); PLATELET 57 x1000/uL (130-400); RED BLOOD CELL COUNT 2.32 mill/uL (4.7-6.1); RED CELL DISTRIBUTION WIDTH 14.9 % (11.6-14.6)
[2020-04-19 06:37] LABS: PHOSPHORUS 4.3 mg/dL (2.5-4.9)
[2020-04-19] MEDS: IPRATROPIUM/ALBUTEROL 0.5-3(2.5)MG/3ML NEB HHN SCH ×3 (08:54→21:09)
[2020-04-19] MEDS ORDERED: MIDAZOLAM HCL 2 MG/2 ML VIAL ONE (10:03)
[2020-04-19] MEDS ORDERED: PROPOFOL 200MG/20ML VIAL IV ONE (10:03)
[2020-04-19] MEDS: DOCUSATE SODIUM SUGAR FREE 100MG/10ML UDC GT SCH (10:47)
[2020-04-19] MEDS: ZINC SULFATE 220 MG ( 50 ) CAPSULE NG SCH (10:47)
[2020-04-19] MEDS: PANTOPRAZOLE SODIUM 40 MG/VIAL IV SCH ×2 (10:47→20:56)
[2020-04-19] MEDS: PAROXETINE HCL 10MG TABLET GT SCH (10:48)
[2020-04-19] MEDS: CARVEDILOL 3.125 MG TABLET PO SCH ×2 (10:48→20:57)
[2020-04-19] MEDS: ASCORBIC ACID 500 MG TABLET NG SCH (10:48)
[2020-04-19 16:33] LABS: PLATELET ESTIMATE MARKEDLY DECREASED
[2020-04-19] MEDS: ACETAMINOPHEN 650MG/20.3ML UDC PO PRN ×2 (18:02→19:04)
[2020-04-19] MEDS: FILGRASTIM-TBO 300 MCG/0.5 ML SYRINGE SQ SCH (20:56)
[2020-04-20] VITALS (20 sets, daily range): BP systolic 103–127; BP diastolic 60–76
[2020-04-20] MEDS: ACETAMINOPHEN 650MG/20.3ML UDC PO PRN ×2 (02:19→12:51)
[2020-04-20] MEDS: BLOOD SUGAR DIAGNOSTIC STRIP TEST SCH (06:17)
[2020-04-20] MEDS: CALCIUM CARBONATE 500MG TABLET CHEW NG SCH ×2 (06:17→21:29)
[2020-04-20 07:08] LABS: MEAN CORPUSCULAR VOLUME 91.9 fL (80.0-94.0); MEAN PLATELET VOLUME 9.1 fl (7.4-10.4); PLATELET 57 x1000/uL (130-400); RED BLOOD CELL COUNT 2.18 mill/uL (4.7-6.1); RED CELL DISTRIBUTION WIDTH 14.4 % (11.6-14.6)
[2020-04-20 07:25] LABS: HEMOGLOBIN. 6.8 g/dL (14.0-18.0)
[2020-04-20 07:27] LABS: PHOSPHORUS 4.7 mg/dL (2.5-4.9)
[2020-04-20] MEDS: CARVEDILOL 3.125 MG TABLET PO SCH ×2 (09:00→21:00)
[2020-04-20] MEDS: PANTOPRAZOLE SODIUM 40 MG/VIAL IV SCH (09:19)
[2020-04-20] MEDS: DOCUSATE SODIUM SUGAR FREE 100MG/10ML UDC GT SCH (09:19)
[2020-04-20] MEDS: ZINC SULFATE 220 MG ( 50 ) CAPSULE NG SCH (09:20)
[2020-04-20] MEDS: ASCORBIC ACID 500 MG TABLET NG SCH (09:20)
[2020-04-20] MEDS: SULFAMETHOXAZOLE/TRIMETHOPRIM 800/160MG TABLET PO SCH (09:20)
[2020-04-20] MEDS: PAROXETINE HCL 10MG TABLET GT SCH (09:20)
[2020-04-20 11:25] LABS: PLATELET ESTIMATE MARKEDLY DECREASED
[2020-04-20] MEDS: FILGRASTIM-TBO 300 MCG/0.5 ML SYRINGE SQ SCH (21:29)
[2020-04-20 23:30] LABS: HEMATOCRIT 26.5 % (42.0-52.0); HEMOGLOBIN 9.2 g/dL (14.0-18.0)
[2020-04-21] VITALS (12 sets, daily range): BP systolic 111–130; BP diastolic 58–74
[2020-04-21] MEDS: TRAMADOL 50MG TABLET GT PRN ×2 (02:16→16:32)
[2020-04-21] MEDS: BLOOD SUGAR DIAGNOSTIC STRIP TEST SCH (05:47)
[2020-04-21] MEDS: CALCIUM CARBONATE 500MG TABLET CHEW NG SCH ×3 (06:31→21:40)
[2020-04-21] MEDS: ZINC SULFATE 220 MG ( 50 ) CAPSULE NG SCH (08:20)
[2020-04-21] MEDS: CARVEDILOL 3.125 MG TABLET PO SCH ×2 (08:21→21:00)
[2020-04-21] MEDS: ASCORBIC ACID 500 MG TABLET NG SCH (08:21)
[2020-04-21] MEDS: PAROXETINE HCL 10MG TABLET GT SCH (08:21)
[2020-04-21] MEDS: DOCUSATE SODIUM SUGAR FREE 100MG/10ML UDC GT SCH (08:21)
[2020-04-21 08:31] LABS: HEMATOCRIT. 25.9 % (42.0-52.0); HEMOGLOBIN. 8.9 g/dL (14.0-18.0); MEAN CORPUSCULAR HEMOGLOBIN 30.8 pg (28.0-32.0); MEAN CORPUSCULAR VOLUME 89.3 fL (80.0-94.0); MEAN PLATELET VOLUME 9.3 fl (7.4-10.4); PLATELET 58 x1000/uL (130-400); RED CELL DISTRIBUTION WIDTH 13.9 % (11.6-14.6)
[2020-04-21 08:58] LABS: PHOSPHORUS 3.3 mg/dL (2.5-4.9)
[2020-04-21 16:25] LABS: PLATELET ESTIMATE MARKEDLY DECREASED
[2020-04-21] MEDS: FILGRASTIM-TBO 300 MCG/0.5 ML SYRINGE SQ SCH (21:40)
[2020-04-22] VITALS (12 sets, daily range): BP systolic 105–124; BP diastolic 60–70
[2020-04-22] MEDS: TRAMADOL 50MG TABLET GT PRN ×2 (00:06→06:42)
[2020-04-22] MEDS: ACETAMINOPHEN 650MG/20.3ML UDC PO PRN ×2 (05:20→18:32)
[2020-04-22] MEDS: CALCIUM CARBONATE 500MG TABLET CHEW NG SCH ×3 (06:37→21:20)
[2020-04-22 06:43] LABS: BASOPHILS % 0.3 % (0.0-2.0); EOSINOPHILS % 0.3 % (0.0-5.0); HEMATOCRIT. 27.2 % (42.0-52.0); HEMOGLOBIN. 9.4 g/dL (14.0-18.0); LYMPHOCYTES % 15.1 % (20.0-50.0); MEAN CORPUSCULAR VOLUME 89.9 fL (80.0-94.0); MEAN PLATELET VOLUME 9.4 fl (7.4-10.4); MONOCYTES % 1.3 % (2.0-8.0); PLATELET 55 x1000/uL (130-400); RED BLOOD CELL COUNT 3.02 mill/uL (4.7-6.1); RED CELL DISTRIBUTION WIDTH 14.1 % (11.6-14.6)
[2020-04-22 06:48] LABS: PHOSPHORUS 3.8 mg/dL (2.5-4.9)
[2020-04-22] MEDS: CARVEDILOL 3.125 MG TABLET PO SCH ×2 (09:00→21:00)
[2020-04-22] MEDS: DOCUSATE SODIUM SUGAR FREE 100MG/10ML UDC GT SCH (09:49)
[2020-04-22] MEDS: PAROXETINE HCL 10MG TABLET GT SCH (09:50)
[2020-04-22] MEDS: ASCORBIC ACID 500 MG TABLET NG SCH (09:50)
[2020-04-22] MEDS: ZINC SULFATE 220 MG ( 50 ) CAPSULE NG SCH (09:50)
[2020-04-22] MEDS ORDERED: BLOOD SUGAR DIAGNOSTIC STRIP TEST SCH (19:15)
[2020-04-22] MEDS: FILGRASTIM-TBO 300 MCG/0.5 ML SYRINGE SQ SCH (21:20)
[2020-04-23] VITALS (12 sets, daily range): BP systolic 98–133; BP diastolic 59–76
[2020-04-23] MEDS: CALCIUM CARBONATE 500MG TABLET CHEW NG SCH (05:56)
[2020-04-23] MEDS: TRAMADOL 50MG TABLET GT PRN ×3 (06:08→22:00)
[2020-04-23 06:32] LABS: BASOPHILS % 0.2 % (0.0-2.0); EOSINOPHILS % 0.2 % (0.0-5.0); HEMATOCRIT. 27.5 % (42.0-52.0); HEMOGLOBIN. 9.4 g/dL (14.0-18.0); MEAN CORPUSCULAR HEMOGLOBIN 30.9 pg (28.0-32.0); MEAN CORPUSCULAR VOLUME 90.5 fL (80.0-94.0); MEAN PLATELET VOLUME 9.6 fl (7.4-10.4); NEUTROPHILS % 83.6 % (40.0-76.0); PLATELET 55 x1000/uL (130-400); RED BLOOD CELL COUNT 3.04 mill/uL (4.7-6.1); RED CELL DISTRIBUTION WIDTH 13.9 % (11.6-14.6)
[2020-04-23] MEDS: BLOOD SUGAR DIAGNOSTIC STRIP TEST SCH (06:35)
[2020-04-23 07:11] LABS: PHOSPHORUS 4.5 mg/dL (2.5-4.9)
[2020-04-23] MEDS: ASCORBIC ACID 500 MG TABLET NG SCH (08:47)
[2020-04-23] MEDS: DOCUSATE SODIUM SUGAR FREE 100MG/10ML UDC GT SCH (08:47)
[2020-04-23] MEDS: PAROXETINE HCL 10MG TABLET GT SCH (08:48)
[2020-04-23] MEDS: CARVEDILOL 3.125 MG TABLET PO SCH ×2 (08:48→21:00)
[2020-04-23] MEDS: ZINC SULFATE 220 MG ( 50 ) CAPSULE NG SCH (08:48)
[2020-04-23] MEDS: FILGRASTIM-TBO 300 MCG/0.5 ML SYRINGE SQ SCH (21:58)
[2020-04-24] VITALS (12 sets, daily range): BP systolic 99–134; BP diastolic 52–75
[2020-04-24] MEDS: BLOOD SUGAR DIAGNOSTIC STRIP TEST SCH (06:00)
[2020-04-24 06:54] LABS: BASOPHILS % 0.2 % (0.0-2.0); EOSINOPHILS % 0.5 % (0.0-5.0); HEMOGLOBIN. 9.3 g/dL (14.0-18.0); LYMPHOCYTES % 13.5 % (20.0-50.0); MEAN CORPUSCULAR HEMOGLOBIN 30.9 pg (28.0-32.0); MEAN CORPUSCULAR VOLUME 90.3 fL (80.0-94.0); MEAN PLATELET VOLUME 9.2 fl (7.4-10.4); MONOCYTES % 1.6 % (2.0-8.0); NEUTROPHILS % 84.2 % (40.0-76.0); PLATELET 52 x1000/uL (130-400); RED BLOOD CELL COUNT 2.99 mill/uL (4.7-6.1); RED CELL DISTRIBUTION WIDTH 13.7 % (11.6-14.6)
[2020-04-24 06:56] LABS: PHOSPHORUS 3.4 mg/dL (2.5-4.9)
[2020-04-24] MEDS: TRAMADOL 50MG TABLET GT PRN (07:01)
[2020-04-24] MEDS: CARVEDILOL 3.125 MG TABLET PO SCH ×2 (09:00→21:48)
[2020-04-24] MEDS: DOCUSATE SODIUM SUGAR FREE 100MG/10ML UDC GT SCH (09:00)
[2020-04-24] MEDS: PAROXETINE HCL 10MG TABLET GT SCH (09:06)
[2020-04-24] MEDS: ZINC SULFATE 220 MG ( 50 ) CAPSULE NG SCH (09:06)
[2020-04-24] MEDS: ASCORBIC ACID 500 MG TABLET NG SCH (09:07)
[2020-04-25] VITALS (11 sets, daily range): BP systolic 104–138; BP diastolic 61–82
[2020-04-25] MEDS: BLOOD SUGAR DIAGNOSTIC STRIP TEST SCH (06:00)
[2020-04-25 06:36] LABS: BASOPHILS % 0.3 % (0.0-2.0); EOSINOPHILS % 0.1 % (0.0-5.0); HEMATOCRIT. 27.2 % (42.0-52.0); HEMOGLOBIN. 9.3 g/dL (14.0-18.0); LYMPHOCYTES % 17.9 % (20.0-50.0); MEAN CORPUSCULAR HEMOGLOBIN 31.1 pg (28.0-32.0); MEAN CORPUSCULAR VOLUME 91.4 fL (80.0-94.0); MEAN PLATELET VOLUME 8.7 fl (7.4-10.4); MONOCYTES % 1.2 % (2.0-8.0); NEUTROPHILS % 80.5 % (40.0-76.0); PLATELET 51 x1000/uL (130-400); RED BLOOD CELL COUNT 2.98 mill/uL (4.7-6.1); RED CELL DISTRIBUTION WIDTH 13.7 % (11.6-14.6)
[2020-04-25 07:07] LABS: CHLORIDE 104 mEq/L (98-107)
[2020-04-25 07:13] LABS: PHOSPHORUS 3.9 mg/dL (2.5-4.9)
[2020-04-25] MEDS: DOCUSATE SODIUM SUGAR FREE 100MG/10ML UDC GT SCH ×3 (08:46→16:09)
[2020-04-25] MEDS: CARVEDILOL 3.125 MG TABLET PO SCH ×2 (08:49→21:00)
[2020-04-25] MEDS: TRAMADOL 50MG TABLET GT PRN ×2 (08:50→15:00)
[2020-04-25] MEDS: ASCORBIC ACID 500 MG TABLET NG SCH (08:50)
[2020-04-25] MEDS: PAROXETINE HCL 10MG TABLET GT SCH (08:50)
[2020-04-25] MEDS: ZINC SULFATE 220 MG ( 50 ) CAPSULE NG SCH (08:50)
[2020-04-25 13:03] LABS: CLARITY URINE CLOUDY (CLEAR); COLOR URINE YELLOW (YELLOW); KETONES URINE NEGATIVE (NEGATIVE); LEUKOCYTE ESTERASE URINE NEGATIVE (NEGATIVE); NITRITE URINE NEGATIVE (NEGATIVE); OCCULT BLOOD URINE 1+ (NEGATIVE); PROTEIN URINE 1+ (NEGATIVE); SPECIFIC GRAVITY URINE 1.017 (1.005-1.030); UROBILINOGEN URINE 0.2 E.U./dL (0.2-1.0)
[2020-04-25 13:16] LABS: SODIUM URINE RANDOM 17 mEq/L
[2020-04-25] MEDS: TRAMADOL 50MG TABLET PO PRN (21:56)
[2020-04-26] VITALS (12 sets, daily range): BP systolic 112–137; BP diastolic 65–85
[2020-04-26] MEDS: TRAMADOL 50MG TABLET PO PRN ×3 (04:15→20:43)
[2020-04-26] MEDS: BLOOD SUGAR DIAGNOSTIC STRIP TEST SCH (05:21)
[2020-04-26 06:25] LABS: HEMATOCRIT. 25.5 % (42.0-52.0); HEMOGLOBIN. 8.7 g/dL (14.0-18.0); MEAN CORPUSCULAR HEMOGLOBIN 31.1 pg (28.0-32.0); MEAN CORPUSCULAR VOLUME 91.2 fL (80.0-94.0); MEAN PLATELET VOLUME 9.3 fl (7.4-10.4); RED CELL DISTRIBUTION WIDTH 13.8 % (11.6-14.6)
[2020-04-26 06:33] LABS: PLATELET 50 x1000/uL (130-400)
[2020-04-26 07:07] LABS: PHOSPHORUS 3.1 mg/dL (2.5-4.9)
[2020-04-26] MEDS: PAROXETINE HCL 10MG TABLET GT SCH (08:33)
[2020-04-26] MEDS: ZINC SULFATE 220 MG ( 50 ) CAPSULE NG SCH (08:33)
[2020-04-26] MEDS: ASCORBIC ACID 500 MG TABLET NG SCH (08:33)
[2020-04-26] MEDS: CARVEDILOL 3.125 MG TABLET PO SCH ×2 (08:33→20:42)
[2020-04-26] MEDS: DOCUSATE SODIUM SUGAR FREE 100MG/10ML UDC GT SCH ×2 (08:34→18:14)
[2020-04-26 12:49] LABS: CLARITY URINE CLOUDY (CLEAR); COLOR URINE YELLOW (YELLOW); KETONES URINE NEGATIVE (NEGATIVE); LEUKOCYTE ESTERASE URINE NEGATIVE (NEGATIVE); NITRITE URINE NEGATIVE (NEGATIVE); OCCULT BLOOD URINE 1+ (NEGATIVE); PROTEIN URINE 1+ (NEGATIVE); SPECIFIC GRAVITY URINE 1.017 (1.005-1.030); UROBILINOGEN URINE 0.2 E.U./dL (0.2-1.0)
[2020-04-26 15:18] LABS: PLATELET ESTIMATE MARKEDLY DECREASED
[2020-04-27] VITALS (12 sets, daily range): BP systolic 111–140; BP diastolic 66–93
[2020-04-27] MEDS: LACTULOSE 20G/30ML UDC GT PRN (01:36)
[2020-04-27] MEDS: TRAMADOL 50MG TABLET PO PRN ×2 (04:00→21:14)
[2020-04-27] MEDS: BLOOD SUGAR DIAGNOSTIC STRIP TEST SCH (05:13)
[2020-04-27 07:12] LABS: HEMOGLOBIN. 7.9 g/dL (14.0-18.0); MEAN CORPUSCULAR HEMOGLOBIN 31.2 pg (28.0-32.0); MEAN PLATELET VOLUME 9.1 fl (7.4-10.4); RED BLOOD CELL COUNT 2.53 mill/uL (4.7-6.1); RED CELL DISTRIBUTION WIDTH 13.6 % (11.6-14.6)
[2020-04-27] MEDS: DOCUSATE SODIUM SUGAR FREE 100MG/10ML UDC GT SCH ×2 (09:00→17:41)
[2020-04-27 09:20] LABS: PLATELET 47 x1000/uL (130-400)
[2020-04-27] MEDS: SULFAMETHOXAZOLE/TRIMETHOPRIM 400/80MG TAB PO SCH (09:50)
[2020-04-27] MEDS: PAROXETINE HCL 10MG TABLET GT SCH (09:50)
[2020-04-27] MEDS: CARVEDILOL 3.125 MG TABLET PO SCH ×2 (09:51→21:15)
[2020-04-27 12:38] LABS: PLATELET ESTIMATE MARKEDLY DECREASED
[2020-04-27] MEDS ORDERED: NA PHOS,M-B/NA PHOS,DI-BA ENEMA 118ML PR ONE (16:00)
[2020-04-27] MEDS ORDERED: NA PHOS,M-B/NA PHOS,DI-BA ENEMA 118ML PR NR (16:00)
[2020-04-27] MEDS: MEGESTROL ACETATE 400 MG/10 ML UDC PO SCH (18:59)
[2020-04-28] VITALS (14 sets, daily range): BP systolic 103–133; BP diastolic 54–93
[2020-04-28] MEDS: BLOOD SUGAR DIAGNOSTIC STRIP TEST SCH (05:39)
[2020-04-28] MEDS: TRAMADOL 50MG TABLET PO PRN ×3 (06:00→20:15)
[2020-04-28 07:50] LABS: BASOPHILS % 0.5 % (0.0-2.0); EOSINOPHILS % 0.2 % (0.0-5.0); HEMATOCRIT. 21.4 % (42.0-52.0); HEMOGLOBIN. 7.2 g/dL (14.0-18.0); LYMPHOCYTES % 35.6 % (20.0-50.0); MEAN CORPUSCULAR HEMOGLOBIN 31.1 pg (28.0-32.0); MEAN CORPUSCULAR VOLUME 91.7 fL (80.0-94.0); MEAN PLATELET VOLUME 9.2 fl (7.4-10.4); MONOCYTES % 1.5 % (2.0-8.0); NEUTROPHILS % 62.2 % (40.0-76.0); RED BLOOD CELL COUNT 2.33 mill/uL (4.7-6.1); RED CELL DISTRIBUTION WIDTH 13.6 % (11.6-14.6)
[2020-04-28 08:04] LABS: CHLORIDE 103 mEq/L (98-107)
[2020-04-28] MEDS: DOCUSATE SODIUM SUGAR FREE 100MG/10ML UDC GT SCH (09:41)
[2020-04-28] MEDS: PAROXETINE HCL 10MG TABLET GT SCH (09:41)
[2020-04-28] MEDS: CARVEDILOL 3.125 MG TABLET PO SCH ×2 (09:42→21:00)
[2020-04-28] MEDS: MEGESTROL ACETATE 400 MG/10 ML UDC PO SCH (09:42)
[2020-04-28 12:26] LABS: PLATELET 48 x1000/uL (130-400)
[2020-04-29] VITALS (12 sets, daily range): BP systolic 103–138; BP diastolic 59–81
[2020-04-29] MEDS: TRAMADOL 50MG TABLET PO PRN ×3 (03:40→22:02)
[2020-04-29] MEDS: BLOOD SUGAR DIAGNOSTIC STRIP TEST SCH (06:00)
[2020-04-29] MEDS: DOCUSATE SODIUM SUGAR FREE 100MG/10ML UDC GT SCH (09:00)
[2020-04-29] MEDS: CARVEDILOL 3.125 MG TABLET PO SCH ×2 (09:07→21:00)
[2020-04-29] MEDS: MEGESTROL ACETATE 400 MG/10 ML UDC PO SCH (09:08)
[2020-04-29] MEDS: PAROXETINE HCL 10MG TABLET GT SCH (09:08)
[2020-04-29] MEDS ORDERED: DIPHENOXYLATE/ATROPINE 2.5/0.025MG TABLET PO PRN (10:45)
[2020-04-30] VITALS (18 sets, daily range): BP systolic 92–138; BP diastolic 47–100
[2020-04-30] MEDS: TRAMADOL 50MG TABLET PO PRN ×2 (05:50→21:30)
[2020-04-30] MEDS: BLOOD SUGAR DIAGNOSTIC STRIP TEST SCH (06:00)
[2020-04-30 07:02] LABS: CHLORIDE 104 mEq/L (98-107)
[2020-04-30 07:39] LABS: MEAN CORPUSCULAR HEMOGLOBIN 31.4 pg (28.0-32.0); MEAN CORPUSCULAR VOLUME 91.1 fL (80.0-94.0); MEAN PLATELET VOLUME 8.7 fl (7.4-10.4); PLATELET 57 x1000/uL (130-400); RED BLOOD CELL COUNT 2.16 mill/uL (4.7-6.1); RED CELL DISTRIBUTION WIDTH 13.3 % (11.6-14.6)
[2020-04-30 07:48] LABS: HEMOGLOBIN. 6.8 g/dL (14.0-18.0)
[2020-04-30 07:49] LABS: HEMATOCRIT. 19.7 % (42.0-52.0)
[2020-04-30] MEDS: MEGESTROL ACETATE 400 MG/10 ML UDC PO SCH (08:34)
[2020-04-30] MEDS: PAROXETINE HCL 10MG TABLET GT SCH (08:35)
[2020-04-30] MEDS: SULFAMETHOXAZOLE/TRIMETHOPRIM 400/80MG TAB PO SCH (08:35)
[2020-04-30] MEDS: CARVEDILOL 3.125 MG TABLET PO SCH ×2 (08:35→21:31)
[2020-04-30 11:57] LABS: PLATELET ESTIMATE MARKEDLY DECREASED
[2020-04-30] MEDS ORDERED: PHENYLEPHRINE/SHK LV/MO/PET,WH RECTAL OINT 57GM PR PRN ×2 (14:15→16:00)
[2020-05-01] VITALS (13 sets, daily range): BP systolic 94–136; BP diastolic 54–99
[2020-05-01] MEDS ORDERED: PHENYLEPHRINE/SHK LV/MO/PET,WH RECTAL OINT 57GM PR PRN
[2020-05-01] MEDS: BLOOD SUGAR DIAGNOSTIC STRIP TEST SCH (06:00)
[2020-05-01] MEDS: TRAMADOL 50MG TABLET PO PRN ×2 (06:15→16:54)
[2020-05-01 06:48] LABS: CHLORIDE 102 mEq/L (98-107)
[2020-05-01 06:53] LABS: PHOSPHORUS 2.4 mg/dL (2.5-4.9)
[2020-05-01 07:07] LABS: HEMATOCRIT. 22.3 % (42.0-52.0); HEMOGLOBIN. 7.6 g/dL (14.0-18.0); MEAN CORPUSCULAR HEMOGLOBIN 31.2 pg (28.0-32.0); MEAN CORPUSCULAR VOLUME 91.1 fL (80.0-94.0); MEAN PLATELET VOLUME 8.2 fl (7.4-10.4); PLATELET 60 x1000/uL (130-400); RED BLOOD CELL COUNT 2.44 mill/uL (4.7-6.1); RED CELL DISTRIBUTION WIDTH 13.6 % (11.6-14.6)
[2020-05-01] MEDS: MEGESTROL ACETATE 400 MG/10 ML UDC PO SCH (08:42)
[2020-05-01] MEDS: PAROXETINE HCL 10MG TABLET GT SCH (08:42)
[2020-05-01] MEDS: CARVEDILOL 3.125 MG TABLET PO SCH ×2 (08:42→21:00)
[2020-05-01] MEDS ORDERED: SODIUM PHOS,M-BASIC-D-BASIC 15 MM in DEXT 5% WATER 245 ML IV NR (11:00)
[2020-05-01] MEDS ORDERED: MAGNESIUM 4 G PREMIX 100 ML IV NR (11:00)
[2020-05-01 18:01] LABS: PLATELET ESTIMATE DECREASED
== END 2020-05-01 23:09 | DRG 4 ==
LOC: ER 05:05 → EDBEDREQ 08:36 → EDBEDREQTM 08:36 → EDBEDREQ 09:32 → EDBEDREQTM 09:32 → EDBEDREQ 09:37 → EDBEDREQTM 10:42 → MICUSO 20:04 → EDBEDREQTM 20:11 → EDBEDREQ 20:11 → EDBEDREQSVC 20:11 → MICUSO 03-23 01:29 → 5EST 03-29 13:50 → MICUNO 04-07 00:45 → 5EST 04-08 17:56
PROVIDERS: ADMIT Internal Medicine; ATTEND Internal Medicine
PROC: 5A1955Z Respiratory Ventilation, Greater than 96 Consecutive Hours (ICD-10-PCS; principal; 2020-03-22)
PROC: 30233N1 Transfusion of Nonautologous Red Blood Cells into Peripheral Vein, Percutaneous Approach (ICD-10-PCS; 2020-03-22)
PROC: 5A09357 Assistance with Respiratory Ventilation, Less than 24 Consecutive Hours, Continuous Positive Airway Pressure (ICD-10-PCS; 2020-03-22)
PROC: 0BH17EZ Insertion of Endotracheal Airway into Trachea, Via Natural or Artificial Opening (ICD-10-PCS; 2020-03-22)
PROC: 30233R1 Transfusion of Nonautologous Platelets into Peripheral Vein, Percutaneous Approach (ICD-10-PCS; 2020-03-25)
PROC: 02HV33Z Insertion of Infusion Device into Superior Vena Cava, Percutaneous Approach (ICD-10-PCS; 2020-03-26)
PROC: B548ZZA Ultrasonography of Superior Vena Cava, Guidance (ICD-10-PCS; 2020-03-26)
PROC: 0B110F4 Bypass Trachea to Cutaneous with Tracheostomy Device, Open Approach (ICD-10-PCS; 2020-04-04)
PROC: 0GBJ0ZZ Excision of Thyroid Gland Isthmus, Open Approach (ICD-10-PCS; 2020-04-04)
PROC: 0DH63UZ Insertion of Feeding Device into Stomach, Percutaneous Approach (ICD-10-PCS; 2020-04-05)
PROC: 07DQ3ZX Extraction of Sternum Bone Marrow, Percutaneous Approach, Diagnostic (ICD-10-PCS; 2020-04-19)
DX: J96.01 Acute respiratory failure with hypoxia (principal); I21.4 Non-ST elevation (NSTEMI) myocardial infarction; I46.9 Cardiac arrest, cause unspecified; J69.0 Pneumonitis due to inhalation of food and vomit; G93.41 Metabolic encephalopathy; K72.00 Acute and subacute hepatic failure without coma; E43 Unspecified severe protein-calorie malnutrition; D68.9 Coagulation defect, unspecified; R65.10 Systemic inflammatory response syndrome (SIRS) of non-infectious origin without acute organ dysfunction; Z85.46 Personal history of malignant neoplasm of prostate; E83.39 Other disorders of phosphorus metabolism; E87.5 Hyperkalemia; D50.0 Iron deficiency anemia secondary to blood loss (chronic); N18.9 Chronic kidney disease, unspecified; D61.818 Other pancytopenia; C85.10 Unspecified B-cell lymphoma, unspecified site; C91.10 Chronic lymphocytic leukemia of B-cell type not having achieved remission; D65 Disseminated intravascular coagulation [defibrination syndrome]; E87.1 Hypo-osmolality and hyponatremia; G20 Parkinson's disease; G81.94 Hemiplegia, unspecified affecting left nondominant side; H70.13 Chronic mastoiditis, bilateral; I13.0 Hypertensive heart and chronic kidney disease with heart failure and stage 1 through stage 4 chronic kidney disease, or unspecified chronic kidney disease; I27.81 Cor pulmonale (chronic); I31.3 Pericardial effusion (noninflammatory); I34.0 Nonrheumatic mitral (valve) insufficiency; I42.0 Dilated cardiomyopathy; I50.23 Acute on chronic systolic (congestive) heart failure; I63.9 Cerebral infarction, unspecified; I71.2 Thoracic aortic aneurysm, without rupture; K59.00 Constipation, unspecified; K81.9 Cholecystitis, unspecified; K21.9 Gastro-esophageal reflux disease without esophagitis; F11.10 Opioid abuse, uncomplicated; F12.10 Cannabis abuse, uncomplicated; N17.0 Acute kidney failure with tubular necrosis; N14.1 Nephropathy induced by other drugs, medicaments and biological substances; T50.8X5A Adverse effect of diagnostic agents, initial encounter; K82.8 Other specified diseases of gallbladder; R07.89 Other chest pain; L89.896 Pressure-induced deep tissue damage of other site; K92.0 Hematemesis; L89.159 Pressure ulcer of sacral region, unspecified stage; Q25.43 Congenital aneurysm of aorta; Z74.01 Bed confinement status; Z79.899 Other long term (current) drug therapy; Z82.49 Family history of ischemic heart disease and other diseases of the circulatory system; Z90.79 Acquired absence of other genital organ(s); Z99.11 Dependence on respirator [ventilator] status; Y92.89 Other specified places as the place of occurrence of the external cause; Z90.49 Acquired absence of other specified parts of digestive tract; Z68.20 Body mass index [BMI] 20.0-20.9, adult; Z03.818 Encounter for observation for suspected exposure to other biological agents ruled out
CPT/HCPCS: 36415; 36600; 38220; 70551; 71045; 71250; 71275; 73610; 74174; 74176; 76700; 76937; 80048; 80053; 80061; 80076; 80202; 80305; 80320; 81003; 82040; 82140; 82270; 82330; 82375; 82378; 82607; 82728; 82746; 82784; 82805; 82962; 83010; 83540; 83550; 83615; 83735; 83880; 83883; 83935; 84100; 84134; 84153; 84155; 84165; 84300; 84478; 84484; 85014; 85018; 85025; 85027; 85044; 85060; 85097; 86334; 86705; 86709; 86803; 86850; 86880; 86900; 86920; 87070; 87340; 87635; 92523; 92610; 93005; 93306; 93970; 94003; 94640; 97110; 97163; 97530; 99291; 99292; C1752; C9113; J0330; J0610; J0690; J0692; J1200; J1442; J1644; J1940; J2060; J2250; J2270; J2405; J2704; J3010; J3370; J3475; J3490; J7060; J7608; P9016; P9034; P9047; Q9963; Q9967; G0103; G0480; U0003-CS